=== PATIENT | female | born 1990 | race African-American/Black ===

== ENCOUNTER 2016-06-29 11:57 | Emergency (ER) | payer OTHER ==
[2016-06-29 12:01] VITALS: BP 118/75; PULSE 60; TEMP 97.8; BMI 29.3
[2016-06-29] MEDS ORDERED: OXYCODONE/APAP 5/325MG COMBO TABLET PO ONE (12:27)
[2016-06-29] MEDS ORDERED: OXYCODONE/APAP 5/325MG COMBO TABLET ONE (12:30)
--- NOTE | 2016-06-29 12:32 | PDOC ---
History of Present Illness - General Chief Complaint: Pain Stated Complaint: LEFT KNEE AND PAIN Time Seen by Provider: 06/29/16 12:08 History Source: Patient - History of Present Illness Occurred: reports: other Lower Extremity Pain Location: left: knee Past History - Past Medical History Allergies/Adverse Reactions: Allergies Allergy/AdvReac Type Severity Reaction Status Date / Time No Known Allergies Allergy Verified 06/29/16 11:58 Home Medications: Ambulatory Orders Ibuprofen [Motrin -] 800 mg PO Q6H #30 tablet 06/29/16 Other medical history: none - Reproductive History (#): 3 Para: 1 - Immunization History Immunization Up to Date: Yes - Psycho/Social/Smoking Cessation Hx Anxiety: No Suicidal Ideation: No Smoking Status: No Smoking History: Never smoked Have you smoked in the past 12 months: No Number of Cigarettes Smoked Daily: 0 Information on smoking cessation initiated: No Hx Alcohol Use: No Drug/Substance Use Hx: No Substance Use Type: None Hx Substance Use Treatment: No Review of Systems - Review of Systems Constitutional: No: Chills, Fever Musculoskeletal: Yes: Joint Pain. No: Joint Swelling *Physical Exam - Vital Signs Last Vital Signs Temp Pulse Resp BP Pulse Ox 97.8 F 60 18 118/75 100 06/29/16 11:59 06/29/16 11:59 06/29/16 11:59 06/29/16 11:59 06/29/16 11:59 - Physical Exam Comments: 06/29/16 12:31 pt sitting on stretcher and texting on her phone General Appearance: Yes: Appropriately Dressed. No: Apparent Distress HEENT: positive: Normal Voice Respiratory/Chest: negative: Respiratory Distress Extremity: positive: Normal Inspection. negative: Tender, Swelling Integumentary: positive: Dry, Warm Neurologic: positive: Fully Oriented, Alert, Normal Mood/Affect Medical Decision Making - Medical Decision Making 06/29/16 12:29 26-year-old female, endorses history of chronic left knee pain after injury 2 years ago. States she had an MRI which showed "bruised bone and inflammation". Has been f/u with an orthopedic, here complaining of worsening of her knee pain 4 days. Is able to bear weight. Taking [id number] medications with no improvement as per patient. Patient well-appearing and in no apparent distress with no swelling to left knee and no significant tenderness to palpation. Will manage pain in ED and dc w/ rx and have pt follow-up with her orthopedic for possible referral to pain management at this point *DC/Admit/Observation/Transfer Diagnosis at time of Disposition: Chronic pain of left knee - Discharge Dispostion Disposition: HOME - Prescriptions Prescriptions: Ibuprofen [Motrin -] 800 mg PO Q6H #30 tablet - Patient Instructions Additional Instructions: Please follow up with your orthopedic
== END 2016-06-29 12:35 | disposition home or self-care (01) ==
LOC: JERFT 11:57
DX: M25.562 Pain in left knee (principal); G89.29 Other chronic pain
CPT/HCPCS: 99281-25

== ENCOUNTER 2016-12-03 22:56 | Emergency (ER) | payer OTHER ==
--- NOTE | 2016-12-03 23:04 | PDOC ---
History of Present Illness - General Chief Complaint: Respiratory Stated Complaint: CANT BREATHE Time Seen by Provider: 12/03/16 22:58 History Source: Patient Exam Limitations: No Limitations - History of Present Illness Initial Comments: 12/04/16 00:11 This is a 26-year-old female who comes in complaining of difficulty breathing. Patient said that it hurts when she takes a deep breath. Patient's complaining of pleuritic type chest pain. Patient denies any fever, chills, cough. Patient denies any history of similar pains in the past. Patient denies any history of DVT risk factors. Patient is had no recent travel is not on control pills and has no family history of DVTs. Patient denies any nausea, diaphoresis or palpitations. Patient says she is otherwise healthy. Patient is complaining of some pain in her left inner thigh and behind her left knee with some associated swelling and discomfort. PAST MEDICAL HISTORY: no significant history PAST SURGICAL HISTORY: no significant history FAMILY HISTORY: no pertinant history SOCIAL HISTORY: Pt lives with family and is employed. MEDICATIONS: reviewed ALLERGIES: As per nursing notes Review of Systems General: No fevers or chills, no weakness, no weight loss HEENT: No change in vision. No sore throat,. No ear pain CardioVascular: No chest pain or shortness of breath Respiratory:No cough, or wheezing. Gastrointestinal: no nausea, vomitting, diarrhea or constipation, No rectal bleeding Genitourinary: No dysuria, hematuria, or frequency Musculoskeletal: No joint or muscle pain or swelling Neurologic: No headache, vertigo, dizziness or loss of consciousness Psychiatric: nor depression Skin: No rashes or easy bruising Endocrine: no increased thirst or abnormal weight change Allergic: no skin or latex allergy All other systems reviewed and normal Exam: General: Well-nourished well-developed individual, no acute distress HEENT: Throat: Normal, tonsils normal, no erythema or exudate Neck: Supple, no meningeal signs, no lymphadenopathy Eyes::Pupils equal reactive and round, extraocular motion intact Chest: Nontender to palpation Cardiac: S1-S2 normal, regular rate and rhythm, no murmurs rubs or gallops Respiratory: Lungs clear to auscultation bilateral Abdomen: Soft, nondistended, normal bowel sounds, nontender to palpation diffusely Extremities: Warm, dry, no cyanosis, clubbing, or edema, left lower extremity there is some tenderness on palpation posterior fossa as well as in her by proximally to mid thigh. There is no tender palpable cord. Neurovascular distal is intact Skin: No rashes Neuro: Alert and oriented x3, nonfocal exam, grossly intact, normal gait Psych: Normal mood and affect EKG shows normal sinus rhythm at rate of [address]-T wave changes. Otherwise normal EKG Ultrasound Doppler is negative for any DVT. Assessment and plan: This is a 26-year-old female who comes in complaining of pleuritic type chest pain and shortness of breath. Patient had a workup including cardiogram that was normal, Doppler to rule out DVT that was normal d- dimer that was normal and blood work that was normal. Patient was diagnosed with pleuritis given an anti-inflammatory which helped with her pain and discharged on an anti-inflammatory. Patient has a primary care doctor she can follow-up with. Past History - Past Medical History Allergies/Adverse Reactions: Allergies Allergy/AdvReac Type Severity Reaction Status Date / Time No Known Allergies Allergy Verified 06/29/16 11:58 Home Medications: Ambulatory Orders NK [No Known Home Medication] 12/03/16 - Reproductive History (#): 3 Para: 1 - Immunization History Immunization Up to Date: Yes - Psycho/Social/Smoking Cessation Hx Anxiety: No Suicidal Ideation: No Smoking Status: No Smoking History: Never smoked Have you smoked in the past 12 months: No Number of Cigarettes Smoked Daily: 0 Hx Alcohol Use: No Drug/Substance Use Hx: No Substance Use Type: None Hx Substance Use Treatment: No ED Treatment Course - LABORATORY CBC & Chemistry Diagram: 12/03/16 23:10 12/03/16 23:10 *DC/Admit/Observation/Transfer Diagnosis at time of Disposition: Pleuritic chest pain - Discharge Dispostion Disposition: HOME Condition at time of disposition: Stable Admit: No - Patient Instructions Additional Instructions: Your workup was negative for any serious causes for your pain. Her pain is most likely secondary to a viral etiology. For the pain take ibuprofen 3 tablets 3 times a day with food don't take on an empty stomach. Return to the emergency department immediately with ANY new, persistent or worsening symptoms. Continue any medications as previously prescribed by your physician. You should follow up with your primary doctor as soon as possible regarding today's emergency department visit. . Please make sure your doctor reviews the results of your emergency evaluation. Thank you for coming to the Emergency Department today for your care. It was a pleasure to see you today. Please note that your evaluation is INCOMPLETE until you follow-up with your doctor.
[2016-12-03 23:11] VITALS: BP 130/81; PULSE 73; TEMP 98; BMI 29.3
[2016-12-03 23:29] LABS: BASOPHIL 0.8 % (0-2.0); EOSINOPHIL 0.8 % (0-4.5); MCHC 33.7 g/dl (32.0-36.0); MEAN CELL VOLUME 65.4 fl (80-96); MEAN PLT VOLUME 8.4 fl (7.5-11.1); NEUTROPHILS 51.4 % (42.8-82.8); PLATELET COUNT 271 K/MM3 (134-434); RDW 14.6 % (11.6-15.6); WHITE BLOOD COUNT 10.4 K/mm3 (4.0-10.8)
[2016-12-03 23:37] LABS: ALK PHOS 65 U/L (32-92); ANION GAP 5 (8-16); CALCIUM 9.2 mg/dl (8.4-10.2); CO2 24 mmol/L (22-28); CREATININE 0.8 mg/dl (0.6-1.3); GLUCOSE,RANDOM 100 mg/dl (74-106); SGOT/AST 18 U/L (10-42); SGPT/ALT 14 U/L (10-40); TOT PROT 7.2 g/dl (6.4-8.3)
[2016-12-03 23:47] LABS: BILIRUBIN,TOTAL 0.5 mg/dl (0.2-1.0)
[2016-12-03 23:48] LABS: MICROCYTOSIS 2+
[2016-12-03 23:49] LABS: HYPOCHROMIA 2+
[2016-12-03 23:50] LABS: PLATELET ESTIMATE ADEQUATE
[2016-12-04] MEDS ORDERED: KETOROLAC TROMETHAMINE 30 MG/1 ML VIAL IVPUSH ONE (00:11)
--- NOTE | 2016-12-04 11:52 | EKG ---
Test Reason : Blood Pressure : / mmHG Vent. Rate : 059 BPM Atrial Rate : 059 BPM P-R Int : 154 ms QRS Dur : 076 ms QT Int : 410 ms P-R-T Axes : 036 028 009 degrees QTc Int : 405 ms SINUS BRADYCARDIA OTHERWISE NORMAL ECG WHEN COMPARED WITH ECG OF 02-SEP-2008 20:29, NO SIGNIFICANT CHANGE WAS FOUND CLINICAL CORRELATION IS RECOMMENDED Confirmed by MARLI YEUNG MD ([id number]) on 12/04/2016 11:51:22 AM Referred By: Confirmed By:MARLI YEUNG MD
== END 2016-12-04 01:06 | disposition home or self-care (01) ==
LOC: FER 22:56
DX: R07.81 Pleurodynia (principal)
CPT/HCPCS: 36415; 80053; 84703; 85025; 85379; 93005; 93971-TC; 99281-25

== ENCOUNTER 2017-01-23 22:15 | Emergency (ER) | payer OTHER ==
[2017-01-23 22:23] VITALS: BP 119/83; PULSE 66; TEMP 98.5; BMI 29.5
[2017-01-23] MEDS ORDERED: IBUPROFEN 600 MG TABLET (FP) PO ONE (22:24)
--- NOTE | 2017-01-23 22:28 | PDOC ---
History of Present Illness - General Chief Complaint: Back Pain Stated Complaint: BACK/SHOULDER PAIN Time Seen by Provider: 01/23/17 22:17 - History of Present Illness Initial Comments: 01/23/17 22:23 27 F with no PMH presents to ER with back and left chest wall pain after carrying her child. Pt states that her child had a temper tantrum, and when she tried to lift him up, she felt a pain suddenly in her left upper back. She states that it radiates across her side towards her chest, but she denies chest pain or SOB. Denies falling or hitting her head at any time. She states that the pain in her back and side is worse with palpation and certain movements. Denies any weakness/numbness/tingling. Past History - Past Medical History Allergies/Adverse Reactions: Allergies Allergy/AdvReac Type Severity Reaction Status Date / Time No Known Allergies Allergy Verified 06/29/16 11:58 Home Medications: Ambulatory Orders NK [No Known Home Medication] 12/03/16 - Reproductive History (#): 3 Para: 1 - Immunization History Immunization Up to Date: Yes - Suicide/Smoking/Psychosocial Hx Smoking Status: No Smoking History: Never smoked Have you smoked in the past 12 months: No Number of Cigarettes Smoked Daily: 0 Hx Alcohol Use: No Drug/Substance Use Hx: No Substance Use Type: None Hx Substance Use Treatment: No Review of Systems - Review of Systems Comments:: 01/23/17 22:25 "GENERAL/CONSTITUTIONAL: No fever or chills. No weakness. HEAD, EYES, EARS, NOSE AND THROAT: No change in vision. No ear pain or discharge. No sore throat. CARDIOVASCULAR: No chest pain or shortness of breath. RESPIRATORY: No cough, wheezing, or hemoptysis. GASTROINTESTINAL: No nausea, vomiting, diarrhea or constipation. GENITOURINARY: No dysuria, frequency, or change in urination. MUSCULOSKELETAL: + back pain and L side pain, no neck pain SKIN: No rash NEUROLOGIC: No headache, vertigo, loss of consciousness, or change in strength/ sensation. ENDOCRINE: No increased thirst. No abnormal weight change. HEMATOLOGIC/LYMPHATIC: No anemia, easy bleeding, or history of blood clots. ALLERGIC/IMMUNOLOGIC: No hives or skin allergy. " *Physical Exam - Physical Exam Comments: 01/23/17 22:26 "GENERAL: Awake, alert, and fully oriented, in no acute distress HEAD: No signs of trauma EYES: PERRLA, EOMI, sclera anicteric, conjunctiva clear ENT: Auricles normal inspection, hearing grossly normal, nares patent, oropharynx clear without exudates. Moist mucosa NECK: Nontender, no stepoffs, Normal ROM, supple, no lymphadenopathy, JVD, or masses LUNGS: Breath sounds equal, clear to auscultation bilaterally. No wheezes, and no crackles HEART: Regular rate and rhythm, normal S1 and S2, no murmurs, rubs or gallops CHEST: Chest wall with no TTP, no crepitus ABDOMEN: Soft, nontender, normoactive bowel sounds. No guarding, no rebound. No masses BACK: no midline tenderness, L latissimus dorsi muscle with mild tenderness to palpation EXTREMITIES: No deformity of BUE, full range of motion of shoulders, elbows, and hands. No bony tenderness. Normal range of motion, no edema. No clubbing or cyanosis. No cords, erythema, or tenderness NEUROLOGICAL: Cranial nerves II through XII intact. 5/5 strength and sensation in all extremities, Normal speech, normal gait SKIN: Warm, Dry, normal turgor, no rashes or lesions noted. " ED Treatment Course - RADIOLOGY Radiology Studies Ordered: Category Date Time Status CHEST PA & LAT [RAD] Stat Radiology 01/23/17 22:22 Ordered Medical Decision Making - Medical Decision Making 01/23/17 22:28 27 F with L side and back pain after struggling to carry her child. Likely muscular strain. No deformities on exam, NO evidence of spinal injury. - CXR - Motrin - F/u PMD 01/23/17 23:09 XR unremarkable. Pain significantly improved after motrin. Likely 2/2 muscle strain. Pt to be DC'ed home with PMD f/u. *DC/Admit/Observation/Transfer Diagnosis at time of Disposition: Sprain of upper back - Discharge Dispostion Disposition: HOME Condition at time of disposition: Good - Patient Instructions Printed Discharge Instructions: DI for Back Strain or Sprain Additional Instructions: Take ibuprofen every 6 hours as needed for pain. Follow up with your primary care doctor within 1-2 weeks for a re-evaluation. If you experience worsening back pain, chest pain, shortness of breath, or any other concerning symptoms, return to the ER immediately. - Attestations Physician Attestion: 01/23/17 23:11 I, Dr. Vu Cohen MD, attest that this document has been prepared under my direction and personally reviewed by me in its entirety. I further attest, that it accurately reflects all work, treatment, procedures and medical decision -making performed by me.
== END 2017-01-23 23:14 | disposition home or self-care (01) ==
LOC: FER 22:15
DX: S23.3XXA Sprain of ligaments of thoracic spine, initial encounter (principal); X58.XXXA Exposure to other specified factors, initial encounter; Y93.9 Activity, unspecified; Y92.9 Unspecified place or not applicable
CPT/HCPCS: 71020-TC; 84703; 99283-25

== ENCOUNTER 2017-04-18 10:38 | Emergency (ER) | payer OTHER ==
--- NOTE | 2017-04-18 10:46 | PDOC ---
History of Present Illness - General Chief Complaint: Injury Stated Complaint: LEFT THUMB/WRIST PAIN Time Seen by Provider: 04/18/17 10:46 History Source: Patient Exam Limitations: No Limitations - History of Present Illness Initial Comments: 04/18/17 11:16 Pt presents to the ED after hitting her left thumb against the wall while running. The patient hit the wall head on with her extended left thumb. Now complains of pain and swelling located primarily around the mcp joint. Denies other injuries. Patient did not try anything for the pain except for ice, which she states she could not continue because it was "too cold". Pain is worse with flexion and extension of her thumb. Denies prior injuries to that hand. Past History - Past Medical History Allergies/Adverse Reactions: Allergies Allergy/AdvReac Type Severity Reaction Status Date / Time No Known Allergies Allergy Verified 04/18/17 10:40 Home Medications: Ambulatory Orders NK [No Known Home Medication] 04/18/17 COPD: No - Reproductive History (#): 3 Para: 1 - Immunization History Immunization Up to Date: Yes - Suicide/Smoking/Psychosocial Hx Smoking Status: No Smoking History: Never smoked Have you smoked in the past 12 months: No Number of Cigarettes Smoked Daily: 0 Hx Alcohol Use: No Drug/Substance Use Hx: No Substance Use Type: None Hx Substance Use Treatment: No Review of Systems - Review of Systems Musculoskeletal: Yes: Joint Swelling All Other Systems: Reviewed and Negative *Physical Exam - Physical Exam General Appearance: Yes: Nourished, Appropriately Dressed Neck: positive: Supple Musculoskeletal: positive: Normal Inspection Extremity: positive: Normal Capillary Refill, Normal Inspection, Tender. negative: Normal Range of Motion (limited active flexion and extension of the left thumb. Full passive ROM. Mild swelling without deformity or ecchymosis, worse at the MCP joint. Full ROM without tenderness or deformity of the L wrist. ), Pelvis Stable, Coldness, Cyanosis, Delayed Capillary Refill, Pedal Edema, Swelling, Calf Tenderness, Erythema, Inflammation, Other Neurologic: positive: Fully Oriented, Alert, Normal Mood/Affect, Normal Response , Motor Strength 5/5 Medical Decision Making - Medical Decision Making 04/18/17 11:21 Pt presents to the ED complaining of pain and tenderness to the L thumb after hitting her thumb against a wall. denies other injuries. More likely mild sprain than ligamentous injury, but will check xrays to rule out fracture. Will give pain control. 04/18/17 12:14 xray is negative for fracture. Will discharge patient home. *DC/Admit/Observation/Transfer Diagnosis at time of Disposition: Sprain of hand, thumb, left Qualifiers: Encounter type: initial encounter Sprain of finger site: metacarpophalangeal joint Qualified Code(s): S63.642A - Sprain of metacarpophalangeal joint of left thumb, initial encounter - Discharge Dispostion Disposition: HOME Condition at time of disposition: Good Admit: No - Referrals Referrals: Rosa Sharma MD [Primary Care Provider] - - Patient Instructions Printed Discharge Instructions: DI for Hand Injury Additional Instructions: return to the ED for severe pain or swelling in your hand or thumb. - Post Discharge Activity
[2017-04-18 10:47] VITALS: BP 122/80; PULSE 62; TEMP 98.5; BMI 30.3
[2017-04-18] MEDS ORDERED: IBUPROFEN 400 MG TABLET (FP) PO ONE ×2 (10:56→10:58)
== END 2017-04-18 12:21 | disposition home or self-care (01) ==
LOC: FER 10:38
DX: S63.642A Sprain of metacarpophalangeal joint of left thumb, initial encounter (principal); X58.XXXA Exposure to other specified factors, initial encounter; Y93.89 Activity, other specified; Y92.9 Unspecified place or not applicable
CPT/HCPCS: 73130-TC-LT; 99281-25

== ENCOUNTER 2017-12-22 17:32 | Emergency (ER) | payer SELFPAY ==
[2017-12-22 17:47] VITALS: BP 93/76; PULSE 76; TEMP 98.2; BMI 31.0
--- NOTE | 2017-12-22 18:27 | PDOC ---
History of Present Illness - General Chief Complaint: Pain Stated Complaint: INFECTED RIGHT MID FINGER Time Seen by Provider: 12/22/17 18:27 - History of Present Illness Initial Comments: 12/22/17 19:15 The patient is a 27 year old female with no significant PMH who presents for right 3rd digit infection. The patient reports pain to the finger tip beginning 1 week ago with worsening swelling to the finger tip around the nail over the past 1-2 days prompting her presentation to the ED for further evaluation. She otherwise denies fevers, chills, SOB, chest pain, nausea, vomiting, abdominal pain, numbness, tingling, weakness, or changes with urination or bowel movements. Past History - Past Medical History Allergies/Adverse Reactions: Allergies Allergy/AdvReac Type Severity Reaction Status Date / Time No Known Allergies Allergy Verified 12/22/17 17:33 Home Medications: Ambulatory Orders Clindamycin [Cleocin -] 300 mg PO Q6HPO #28 capsule 12/22/17 COPD: No - Reproductive History (#): 3 Para: 1 - Immunization History Immunization Up to Date: Yes - Suicide/Smoking/Psychosocial Hx Smoking Status: No Smoking History: Never smoked Have you smoked in the past 12 months: No Number of Cigarettes Smoked Daily: 0 Information on smoking cessation initiated: No Hx Alcohol Use: Yes (SOCIAL) Drug/Substance Use Hx: No Substance Use Type: Alcohol Hx Substance Use Treatment: No Review of Systems - Review of Systems Comments:: 12/22/17 19:17 Constitutional: No fevers, chills, fatigue, malaise HEENT: No Rhinorrhea, nasal congestion, visual changes Cardiovascular: No chest pain, syncope, palpitations, lightheadedness Respiratory: No Cough, SOB, Hemoptysis, Gastrointestinal: No Abdominal pain, Nausea, Vomiting, Constipation, Diarrhea, Melena Genitourinary: No Dysuria, Frequency, Urgency, Hesitancy, Hematuria, Flank pain Musculoskeletal: No Myalgia, arthralgia Skin: right 3rd digit pain and swelling. No rashes, itching, bruising, pallor Neurologic: No Headache, Dizziness, Numbness, Weakness, or Tingling Psychiatric: No Hallucinations. No SI or HI *Physical Exam - Vital Signs Last Vital Signs Temp Pulse Resp BP Pulse Ox 98.2 F 76 16 93/76 98 12/22/17 17:32 12/22/17 17:32 12/22/17 17:32 12/22/17 17:32 12/22/17 17:32 - Physical Exam Comments: 12/22/17 19:18 General Appearance: Nourished. No Apparent Distress HEENT: No Pharyngeal Erythema, Tonsillar Exudate, Tonsillar Erythema Neck: No Cervical Lymphadenopathy Respiratory/Chest: Lungs Clear, Normal Breath Sounds. No Crackles, Rales, Rhonchi, Wheezing Cardiovascular: Regular Rhythm, Regular Rate. No Murmur, Gallops, Rubs Gastrointestinal/Abdominal: Normal Bowel Sounds, Soft. No Guarding, Rebound, Tenderness Musculoskeletal: No CVA Tenderness Extremity: Paronychia noted to the right 3rd digit with tenderness to palpation. Normal Capillary Refill Integumentary: Normal Color, Dry, Warm Neurologic: Fully Oriented, Alert, Normal Mood/Affect, Normal Response, Procedures - Incision and Drainage I&D Site: Right: Paronychia (3rd digit) Anesthesia: 1% Lidocaine Blade Size: 11 Attempts: 2 Plain Packing: No Complications: none Dressing: Yes Medical Decision Making - Medical Decision Making 12/22/17 19:19 The patient is a 27 year old female with no significant PMH who presents for right 3rd digit infection. Paronychia was I&D here in the ED. We will treat the patient with clindamycin. We discussed proper wound care instructions as well as the need for salt water soaks and the patient voiced understanding. We are comfortable discharging the patient home on clindamycin with primary care provider follow up. We discussed the plan and return precautions with the patient who voiced understanding and is agreeable with the plan. *DC/Admit/Observation/Transfer Diagnosis at time of Disposition: Paronychia - Discharge Dispostion Disposition: HOME Condition at time of disposition: Stable Decision to Admit order: No - Prescriptions Prescriptions: Clindamycin [Cleocin -] 300 mg PO Q6HPO #28 capsule - Referrals - Patient Instructions Printed Discharge Instructions: DI for Paronychia Additional Instructions: Please return to the ER if you experience concerning or worsening symptoms including worsening redness, swelling, or pain. Please soak your finger in warm salt water at home twice a day. We have also sent antibiotics to your pharmacy that you should take as directed for 7 days. Please call to schedule a follow up appointment with your primary care provider within 2-3 days to discuss your ER visit and further management of your symptoms. - Post Discharge Activity
[2017-12-22] MEDS ORDERED: CLINDAMYCIN HCL 300 MG CAPSULE PO ONE (19:12)
[2017-12-22] MEDS ORDERED: CLINDAMYCIN HCL 150 MG CAPSULE (FP) ONE (19:26)
== END 2017-12-22 19:30 | disposition home or self-care (01) ==
LOC: FER 17:32
PROC: 0H9QXZZ Drainage of Finger Nail, External Approach (ICD-10-PCS; principal; 2017-12-22)
DX: L03.011 Cellulitis of right finger (principal)
CPT/HCPCS: 99281-25

== ENCOUNTER 2018-03-01 11:49 | Emergency (ER) | payer OTHER ==
[2018-03-01 11:55] VITALS: BP 108/72; PULSE 77; TEMP 99; BMI 31.1
[2018-03-01 12:19] LABS: URINE APPEARANCE CLEAR; URINE BILIRUBIN NEGATIVE (<2.0 mg/dL); URINE COLOR LTYELLOW; URINE GLUCOSE (UA) NEGATIVE (NEGATIVE); URINE KETONE NEGATIVE (NEGATIVE); URINE LEUK ESTERASE NEGATIVE (NEGATIVE); URINE NITRITE NEGATIVE (NEGATIVE); URINE PROTEIN NEGATIVE (NEGATIVE); URINE UROBILINOGEN NEGATIVE mg/dL (0.2-1.0)
[2018-03-01 12:23] LABS: HCG,QUALITATIVE URINE Negative
--- NOTE | 2018-03-01 12:24 | PDOC ---
History of Present Illness - General Chief Complaint: Vaginal Sxs Stated Complaint: abdominal pain Time Seen by Provider: 03/01/18 12:16 History Source: Patient Exam Limitations: No Limitations - History of Present Illness Travel History: No Initial Comments: 03/01/18 12:36 Here with complaints of foul smelling discharge 2-3 days. Has had bacterial vaginosis in the past and thinks may have a repeat infection. Is sexually active and partner is symptomatic. Denies any sexually transmitted diseases in the past. Timing/Duration: reports: constant, getting worse Past History - Travel Traveled outside of the country in the last 30 days: No Close contact w/someone who was outside of country & ill: No - Past Medical History Allergies/Adverse Reactions: Allergies Allergy/AdvReac Type Severity Reaction Status Date / Time No Known Allergies Allergy Verified 03/01/18 11:52 Home Medications: Ambulatory Orders metroNIDAZOLE 0.75% VAG. GEL [Metrogel 0.75% *Vaginal Gel* -] 1 applic VG HS #1 tube 03/01/18 COPD: No - Reproductive History (#): 3 Para: 1 - Immunization History Immunization Up to Date: Yes - Suicide/Smoking/Psychosocial Hx Smoking Status: No Smoking History: Never smoked Have you smoked in the past 12 months: No Number of Cigarettes Smoked Daily: 0 Hx Alcohol Use: Yes (SOCIAL) Drug/Substance Use Hx: No Substance Use Type: Alcohol Hx Substance Use Treatment: No Review of Systems - Review of Systems Able to Perform ROS?: Yes Is the patient limited Norwegian proficient: Yes Constitutional: Yes: See HPI. No: Symptoms Reported, Malaise HEENTM: Yes: See HPI. No: Symptoms Reported ABD/GI: Yes: Symptoms Reported, See HPI. No: Constipated, Nausea, Vomiting : Yes: Symptoms Reported, See HPI, Discharge (smelly fishy vaginal discharge ) Musculoskeletal: No: Symptoms Reported Integumentary: No: Symptoms Reported All Other Systems: Reviewed and Negative *Physical Exam - Vital Signs Last Vital Signs Temp Pulse Resp BP Pulse Ox 99 F 77 16 108/72 99 03/01/18 11:52 03/01/18 11:52 03/01/18 11:52 03/01/18 11:52 03/01/18 11:52 - Physical Exam General Appearance: Yes: Nourished, Appropriately Dressed, Mild Distress. No: Apparent Distress HEENT: positive: ZELDA, Normal ENT Inspection, TMs Normal, Pharynx Normal Neck: positive: Supple. negative: Lymphadenopathy (R), Lymphadenopathy (L) Respiratory/Chest: positive: Lungs Clear, Normal Breath Sounds Female Pelvic Exam: positive: normal external exam (no lesions or ulcerations noted, has some fishy odor with scant amount of thin white discharge, vault is negative,'s office is closed, has no CMT or masses/tenderness to adnexa.), discharge. negative: lesions, adnexal tenderness Gastrointestinal/Abdominal: positive: Soft. 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 Has cultures reports not revealed for 2-3 days we'll treat for gonorrhea/chlamydia with azithromycin and Rocephin. No reaction after 30 minutes observation. Also sent prescription for MetroGel to pharmacy. Patient will follow-up with [facility] next week for repeat testing *DC/Admit/Observation/Transfer Diagnosis at time of Disposition: BV (bacterial vaginosis), Possible exposure to STD - Discharge Dispostion Disposition: HOME Condition at time of disposition: Stable Decision to Admit order: No - Referrals Referrals: Rosa Sharma MD [Primary Care Provider] - - Patient Instructions Printed Discharge Instructions: DI for Bacterial Vaginosis Additional Instructions: You been treated today with azithromycin 1 g by mouth for treatment of presumed chlamydia You have been treated with Rocephin 250 mg injection for treatment of presumned gonorrhea The gonorrhea and chlamydia testing will not be completed for the next few days. MetroGel 1 application nightly for one week to treat bacterial vaginosis You may call [phone] and leave message for return phone call with lab results. Be sure to be clear with your name, birthdate, and phone number Always use condoms with the partners Followup with [facility] or PMD in one week for reevaluation and retesting. - Post Discharge Activity Forms/Work/School Notes: Back to Work
[2018-03-01 12:39] LABS: EPI CELLS RARE /HPF (FEW); URINE MUCUS RARE
[2018-03-01] MEDS ORDERED: AZITHROMYCIN 250 MG TABLET ONE (12:40)
[2018-03-01] MEDS ORDERED: AZITHROMYCIN 500 MG TABLET PO ONE (12:49)
[2018-03-02] MEDS ORDERED: AZITHROMYCIN 250 MG TABLET PO ONE (12:31)
== END 2018-03-01 12:53 | disposition home or self-care (01) ==
LOC: JERFT 11:49
PROC: 3E0233Z Introduction of Anti-inflammatory into Muscle, Percutaneous Approach (ICD-10-PCS; principal; 2018-03-01)
DX: N76.0 Acute vaginitis (principal); B96.89 Other specified bacterial agents as the cause of diseases classified elsewhere; Z20.2 Contact with and (suspected) exposure to infections with a predominantly sexual mode of transmission
CPT/HCPCS: 36415; 81003; 81015; 84703; 87070; 87086; 87205; 87491; 87591; 96372; 99281-25

== ENCOUNTER 2018-03-16 18:06 | Emergency (ER) | payer OTHER ==
[2018-03-16 18:34] VITALS: BP 120/72; PULSE 82; TEMP 98.2; BMI 30.7
--- NOTE | 2018-03-16 18:42 | PDOC ---
History of Present Illness - General Chief Complaint: Allergic Reaction Stated Complaint: ALLERGIC REACTION - History of Present Illness Initial Comments: The patient is a 28F w/ no reported PMH who presents for evaluation of rash/ hives/BUE swelling, lip swelling, and throat swelling s/p eating Bel[place]ian food last night at 0345. Patient reports no immediate reaction. Woke up around 1100 with above symptoms. She took 3 OTC benadryl capsules and went back to sleep. Re -awoke at 1600 with persistent lip swelling, hives, BUE swelling/itching, throat discomfort. Denies shortness of breath, odynophagia, chest pain, N/V/D. Denies recent fevers/chills, WILHELM, vision changes. Denies history of food allergies or medication allergies Denies any other new exposures that she can think of. Denies any others around her with similar symptoms 03/16/18 18:35 Past History - Past Medical History Allergies/Adverse Reactions: Allergies Allergy/AdvReac Type Severity Reaction Status Date / Time No Known Allergies Allergy Verified 03/16/18 18:19 Home Medications: Ambulatory Orders Diphenhydramine [Benadryl -] 100 mg PO ASDIR 03/16/18 Epinephrine [Epipen] 0.3 mg IJ ONCE #1 auto.injct 03/16/18 Famotidine [Pepcid -] 20 mg PO DAILY #7 tablet 03/16/18 Prednisone [Deltasone] 40 mg PO DAILY 4 Days #8 tablet 03/16/18 COPD: No - Reproductive History (#): 3 Para: 1 - Immunization History Immunization Up to Date: Yes - Suicide/Smoking/Psychosocial Hx Smoking Status: No Smoking History: Unknown if ever smoked Have you smoked in the past 12 months: No Number of Cigarettes Smoked Daily: 0 Hx Alcohol Use: Yes (SOCIAL) Drug/Substance Use Hx: No Substance Use Type: Alcohol Hx Substance Use Treatment: No Review of Systems - Review of Systems Able to Perform ROS?: Yes Comments:: GENERAL/CONSTITUTIONAL: No fever or chills. No weakness HEAD, EYES, EARS, NOSE AND THROAT: No change in vision. No ear pain or discharge CARDIOVASCULAR: No chest pain or shortness of breath RESPIRATORY: No cough, wheezing, or hemoptysis. GASTROINTESTINAL: No nausea, vomiting, diarrhea or constipation GENITOURINARY: No dysuria, frequency, or change in urination MUSCULOSKELETAL: No joint or muscle swelling or pain. No neck or back pain SKIN: No rash NEUROLOGIC: No headache, vertigo, loss of consciousness, or change in strength/ sensation ENDOCRINE: No increased thirst. No abnormal weight change HEMATOLOGIC/LYMPHATIC: No anemia, easy bleeding, or history of blood clots 03/16/18 18:39 Is the patient limited Swedish proficient: No *Physical Exam - Vital Signs Last Vital Signs Temp Pulse Resp BP Pulse Ox 98.2 F 82 18 120/72 100 03/16/18 18:20 03/16/18 18:20 03/16/18 18:20 03/16/18 18:20 03/16/18 18:20 - Physical Exam Comments: GENERAL: Awake, alert, and fully oriented, in no acute distress HEAD: No signs of trauma, normocephalic, atraumatic EYES: PERRLA, EOMI, sclera anicteric, conjunctiva clear ENT: +lower lip swelling; no oropharyngeal swelling; uvula midline w/o edema; Hearing grossly normal, nares patent. Moist mucosa LUNGS: No distress, speaks full sentences, clear to auscultation bilaterally HEART: Regular rate and rhythm, normal S1 and S2, no murmurs appreciated, peripheral pulses normal and equal bilaterally ABDOMEN: Soft, nontender, normoactive bowel sounds. No guarding, no rebound EXTREMITIES : Normal inspection, Normal range of motion, no edema. No clubbing or cyanosis NEUROLOGICAL: Cranial nerves II through XII grossly intact. Normal speech, normal gait, no focal sensorimotor deficits SKIN: warm, dry, diffuse mild erythema/weals, no open lesions/wounds 03/16/18 18:40 Medical Decision Making - Medical Decision Making The patient is a 28F w/ no reported PMH who presents for evaluation of possible allergic reaction ED Course Patient breathing comfortably on room air. No distress. Lungs CTAB. Oropharynx patent Solumedrol 125mg IV once; Pepcid 20mg IV once; Benadryl 50mg IV once 03/16/18 18:42 Rx for prednisone 40mg PO 4 days, pepcid 20mg PO 7 days, epi pen Referral for allergy testing 03/16/18 19:22 Symptoms improved. Denies shortness of breath. Feels throat tightness has resolved. Plan for D/C Rx sent Discharge instructions and return precautions given Dispo: Home 03/16/18 21:24 *DC/Admit/Observation/Transfer Diagnosis at time of Disposition: Allergic reaction Qualifiers: Encounter type: initial encounter Qualified Code(s): T78.40XA - Allergy, unspecified, initial encounter - Discharge Dispostion Disposition: HOME Condition at time of disposition: Improved Decision to Admit order: No - Prescriptions Prescriptions: Epinephrine [Epipen] 0.3 mg IJ ONCE #1 auto.injct Famotidine [Pepcid -] 20 mg PO DAILY #7 tablet Prednisone [Deltasone] 40 mg PO DAILY 4 Days #8 tablet - Referrals Referrals: Rosa Sharma MD [Primary Care Provider] - Jerry Connell MD [Staff Physician] - - Patient Instructions Printed Discharge Instructions: Anaphylaxis Additional Instructions: You were seen in the Emergency Room for allergic reaction. Prescriptions were sent to the pharmacy that you specified. Take as directed. Please follow up with your primary care provider and follow up with the Custodial Manager referral. Return to the Emergency Department if you develop shortness of breath, chest pain, throat tightness, difficulty swallowing, rash, worsening symptoms, or any new/concerning symptoms. - Post Discharge Activity
[2018-03-16] MEDS ORDERED: methylPREDNISolone NA SUCC 125 MG/2 ML VIAL IVPUSH ONE (18:48)
[2018-03-16] MEDS ORDERED: FAMOTIDINE 20 MG/50 ML IVPB 20 MG/50 ML MG IVPB ONE ×3 (18:48→20:08)
[2018-03-16] MEDS ORDERED: diphenhydrAMINE HCL 50 MG CAPSULE PO ONE (18:50)
[2018-03-16] MEDS ORDERED: methylPREDNISolone NA SUCC 125 MG/2 ML VIAL ONE (19:18)
--- NOTE | 2018-03-16 19:27 | PDOC ---
Attending Attestation - HPI HPI: 03/16/18 20:14 The patient is a 28-year-old female with no recorded past medical history presents to the emergency department with bilateral arm itching and lip swelling. The patient reports eating Northern Irish food last night, and woke up with the symptoms of swollen lips, itchy arms and legs and itching to the eyes. The patient reports taking 75 Benadryl in the morning, with relief noted to the eyes. The patient reports at the ER, the has itching to the arm and swelling to the lips, denies any current itching to the legs. Denies shortness of breath, difficulty swallowing or pain with swallowing. The patient reports she ordered from the same restaurant as usual and ordered the usual food as she gets. Denies any new detergent, food, soap. Denies fever, chills, chest pain, abdominal pain. Allergies: NKDA PCP: Rosa Foley MD - Physicial Exam PE: 03/16/18 20:24 GENERAL: Awake, alert, and fully oriented, in no acute distress HEAD: No signs of trauma EYES: PERRLA, EOMI, sclera anicteric, conjunctiva clear ENT: +lower lip swelling, uvula midline without edema, no posterior pharynx, no tongue swelling, no oropharyngeal swelling. Moist mucosa NECK: Normal ROM, supple, no lymphadenopathy, JVD, or masses LUNGS: Breath sounds equal, clear to auscultation bilaterally. No wheezes, and no crackles HEART: Regular rate and rhythm, normal S1 and S2, no murmurs, rubs or gallops ABDOMEN: Soft, nontender, normoactive bowel sounds. No guarding, no rebound. No masses EXTREMITIES: Normal range of motion, no edema. No clubbing or cyanosis. No cords, erythema, or tenderness NEUROLOGICAL: Cranial nerves II through XII grossly intact. Normal speech. SKIN: Urticaria bilaterally. Warm, Dry, normal turgor, no rashes or lesions noted. - Medical Decision Making 03/16/18 20:15 Documentation prepared by Rossi Henning, acting as medical sales associate for Alicia Alfonso DO. <Rossi Henning - Last Filed: 03/16/18 20:24> - Resident Resident Name: Wojciech Alvarado - ED Attending Attestation I have performed the following: I have examined & evaluated the patient, The case was reviewed & discussed with the resident, I agree w/resident's findings & plan, Exceptions are as noted - Medical Decision Making 03/16/18 19:25 I, Dr. Alicia Alfonso, DO, attest that this document has been prepared under my direction and personally reviewed by me in its entirety. I further attest, that it accurately reflects all work, treatment, procedures and medical decision -making performed by me. 03/16/18 19:25 a/p: 28yo female who ate georgian earlier today and developed hives, itching, and lower lip swelling -took benadryl at 11 am, mild resolution of hives initially, but then the urticaria returned -no prior allergic reactions -no known allergies -pt tolerating po, speaking in full sentences, no tongue or pharyneal swelling -mild lower lip swelling -will medicate with solumedrol, benadyrl, pepcid -will monitor and reassess 03/16/18 21:17 pt feeling better rash resolved lips improved stable for dc to home with allergy follow up with Dr. nazario will give prednisone and pepcid and benadryl and epi-pen for dc discussed all reasons to return to the ED and need for follow up <Alicia Alfonso - Last Filed: 03/16/18 21:19>
== END 2018-03-16 21:40 | disposition home or self-care (01) ==
LOC: JER 18:06
PROC: 3E033GC Introduction of Other Therapeutic Substance into Peripheral Vein, Percutaneous Approach (ICD-10-PCS; principal; 2018-03-16)
PROC: 3E033GC Introduction of Other Therapeutic Substance into Peripheral Vein, Percutaneous Approach (ICD-10-PCS; 2018-03-16)
PROC: 3E0333Z Introduction of Anti-inflammatory into Peripheral Vein, Percutaneous Approach (ICD-10-PCS; 2018-03-16)
DX: T78.3XXA Angioneurotic edema, initial encounter (principal); T78.49XA Other allergy, initial encounter; X58.XXXA Exposure to other specified factors, initial encounter
CPT/HCPCS: 96365; 96375; 99281-25

== ENCOUNTER 2018-05-12 16:39 | Emergency (ER) | payer SELFPAY ==
[2018-05-12 16:49] VITALS: BP 123/65; PULSE 79; TEMP 98.1; BMI 31.3
--- NOTE | 2018-05-12 17:43 | PDOC ---
History of Present Illness - History of Present Illness Initial Comments: This patient is a 28 year old female with PMHx of , who presents to the ED for white vaginal discharge and frequency since yesterday. Patient states that she is currently sexually active with both males and females, multiple partners, sometimes wears protection. She reports that since yesterday she has noticed white vaginal discharge with fishy odor and has noticed urinary frequency. Denies h/o STDs. Denies any fevers, chills, nausea, vomiting, diarrhea, chest pain, shortness of breath. Allergies: NKDA PCP: Rosa Foley MD 05/12/18 17:52 <Lenka Reis - Last Filed: 05/12/18 17:52> <Talha Vargas - Last Filed: 05/12/18 18:19> - General Chief Complaint: Vaginal Sxs Stated Complaint: VAGINAL DISCHARGE Time Seen by Provider: 05/12/18 17:02 Past History <Lenka Reis - Last Filed: 05/12/18 17:52> - Past Medical History COPD: No Other medical history: DENIES - Reproductive History Is Patient Now?: No (#): 3 Para: 1 - Immunization History Immunization Up to Date: Yes - Suicide/Smoking/Psychosocial Hx Smoking Status: No Smoking History: Never smoked Have you smoked in the past 12 months: No Number of Cigarettes Smoked Daily: 0 Information on smoking cessation initiated: No Hx Alcohol Use: (occasional) Drug/Substance Use Hx: No Substance Use Type: Alcohol Hx Substance Use Treatment: No <Talha Vargas - Last Filed: 05/12/18 18:19> - Past Medical History Allergies/Adverse Reactions: Allergies Allergy/AdvReac Type Severity Reaction Status Date / Time No Known Allergies Allergy Verified 05/12/18 16:42 Home Medications: Ambulatory Orders NK [No Known Home Medication] 05/12/18 Review of Systems - Review of Systems Comments:: Constitutional: no recent illness; no fever ENT: no sore throat Cardiovascular: no palpitations; no chest pain Pulmonary: no cough; no trouble breathing Gastrointestinal: No nausea; no vomiting; no diarrhea Genitourinary: +vaginal dc and odor, +frequency; no hematuria Skin: No rash Lymph system: No swollen glands Musculoskeletal: No joint swelling Neurological: No weakness; No numbness; No Headache; no vertigo; no lightheadedness Psychiatric:No anxiety; no depression <Lenka Reis - Last Filed: 05/12/18 17:52> *Physical Exam - Vital Signs Last Vital Signs Temp Pulse Resp BP Pulse Ox 98.1 F 79 18 123/65 99 05/12/18 16:40 05/12/18 16:40 05/12/18 16:40 05/12/18 16:40 05/12/18 16:40 - Physical Exam Comments: Vitals: Triage Vital signs reviewed General Appearance: no acute distress, well nourished well developed Extremities: Full range of motion to all extremities, no cyanosis, clubbing, or edema Skin: Warm and dry, no rashes or lesions, no rash, no petechiae Pelvic exam: Yellowish discharge no cervical or adnexal tenderness. Dr. Vargas was chaperoned by Lenka Reis, medical record technician. 05/12/18 17:53 <Lenka Reis - Last Filed: 05/12/18 17:52> - Vital Signs Last Vital Signs Temp Pulse Resp BP Pulse Ox 98.1 F 79 18 123/65 99 05/12/18 16:40 05/12/18 16:40 05/12/18 16:40 05/12/18 16:40 05/12/18 16:40 <Talha Vargas - Last Filed: 05/12/18 18:19> Moderate Sedation - Procedure Monitoring Vital Signs: Procedure Monitoring Vital Signs Temperature 98.1 F 05/12/18 16:40 Pulse Rate 79 05/12/18 16:40 Respiratory Rate 18 05/12/18 16:40 Blood Pressure 123/65 05/12/18 16:40 O2 Sat by Pulse Oximetry (%) 99 05/12/18 16:40 <Lenka Reis - Last Filed: 05/12/18 17:52> - Procedure Monitoring Vital Signs: Procedure Monitoring Vital Signs Temperature 98.1 F 05/12/18 16:40 Pulse Rate 79 05/12/18 16:40 Respiratory Rate 18 05/12/18 16:40 Blood Pressure 123/65 05/12/18 16:40 O2 Sat by Pulse Oximetry (%) 99 05/12/18 16:40 <Talha Vargas - Last Filed: 01/21/19 18:19> Medical Decision Making - Medical Decision Making 05/12/18 18:18 History examination consistent with STD. Cultures sent for GC chlamydia trick We'll treat empirically for GC chlamydia with ceftriaxone and azithromycin will follow up results and treat for trick if positive Patient via's follow-up with her DICE MANAGER Findings, need for follow-up and strict return instructions discussed with patient. <Talha Vargas - Last Filed: 05/12/18 18:19> *DC/Admit/Observation/Transfer - Attestations Scribe Attestion: 05/12/18 17:55 Documentation prepared by Lenka Reis, acting as medical case worker for Talha Vargas MD. <Lenka Reis - Last Filed: 05/12/18 17:52> - Discharge Dispostion Decision to Admit order: No <Talha Vargas - Last Filed: 05/12/18 18:19> Diagnosis at time of Disposition: Vaginal discharge - Discharge Dispostion Disposition: HOME Condition at time of disposition: Stable - Referrals Schedule a call back: Call back - Patient Instructions Printed Discharge Instructions: DI for Vaginal Discharge Additional Instructions: Follow-up with your DICE MANAGER or [facility] this week. Return to the emergency department for any fever severe abdominal pain severe worsening symptoms or for any concerns. - Post Discharge Activity Forms/Work/School Notes: Back to School
[2018-05-12 18:02] LABS: PH,URINE 6.5 (4.5-8); URINE APPEARANCE Slightly; URINE BILIRUBIN Negative (NEGATIVE); URINE COLOR Yellow; URINE GLUCOSE (UA) Negative (NEGATIVE); URINE KETONE Negative (NEGATIVE); URINE LEUK ESTERASE Negative (NEGATIVE); URINE NITRITE Negative (NEGATIVE); URINE PROTEIN Negative (NEGATIVE); URINE UROBILINOGEN 0.2 (0.2-1.0)
[2018-05-12 18:17] LABS: EPI CELLS 1+ /HPF; URINE BACTERIA RARE /hpf (NEGATIVE); URINE RBC 0-3 /hpf (0-3); URINE WBC 0-3 (0-5)
[2018-05-12] MEDS ORDERED: AZITHROMYCIN 500 MG TABLET PO ONE (18:17)
[2018-05-12] MEDS ORDERED: AZITHROMYCIN 250 MG TABLET ONE (18:21)
== END 2018-05-12 18:40 | disposition home or self-care (01) ==
LOC: FER 16:39
DX: N89.8 Other specified noninflammatory disorders of vagina (principal)
CPT/HCPCS: 36415; 81003; 81015; 84703; 87086; 87491; 87591; 87661; 99284-25

== ENCOUNTER 2019-02-25 21:36 | Emergency (ER) | payer OTHER ==
[2019-02-25 21:46] VITALS: BP 115/78; PULSE 73; TEMP 98.4; BMI 28.2
--- NOTE | 2019-02-25 22:07 | PDOC ---
Documentation entered by Rossi Henning SCRIBE, acting as scribe for Juan Martinez MD. Juan Martinez MD: This documentation has been prepared by the keoibe, Rossi Henning SCRIBE, under my direction and personally reviewed by me in its entirety. I confirm that the documentation accurately reflects all work , treatment, procedures, and medical decision making performed by me. History of Present Illness - General Chief Complaint: Wound Stated Complaint: L 4TH DIGIT INFECTION History Source: Patient Exam Limitations: No Limitations - History of Present Illness Initial Comments: 02/25/19 21:56 The patient is a 29 year old female who presents to the emergency department with finger swelling. The patient presents with left 4th digit swelling. The patient reports she recently got the acrylics nails removed, and reports she occasionally bites her nails. Denies fever or chills. PAST MEDICAL HISTORY: no significant history PAST SURGICAL HISTORY: no significant history FAMILY HISTORY: no pertinent history SOCIAL HISTORY: Pt lives with family and is employed. MEDICATIONS: reviewed ALLERGIES: As per nursing notes Review of system: General: No fevers or chills, no weakness, no weight loss HEENT: No change in vision. No sore throat,. No ear pain CardioVascular: No chest pain or shortness of breath Respiratory:No cough, or wheezing. Gastrointestinal: no nausea, vomiting, diarrhea or constipation, No rectal bleeding Genitourinary: No dysuria, hematuria, or frequency Musculoskeletal: +swelling to left 4th finger. No joint or muscle pain or swelling Neurologic: No headache, vertigo, dizziness or loss of consciousness Psychiatric: nor depression Skin: No rashes or easy bruising Endocrine: no increased thirst or abnormal weight change Allergic: no skin or latex allergy All other systems reviewed and normal Physical exam: GENERAL: The patient is awake, alert, and fully oriented, in no acute distress. HEAD: Normal with no signs of trauma. EYES: Pupils equal, round and reactive to light, extraocular movements intact, sclera anicteric, conjunctiva clear. EXTREMITIES: Normal range of motion, no edema. NEUROLOGICAL: Normal speech, normal gait. PSYCH: Normal mood, normal affect. SKIN: +paronychia to left 4th finger. Warm, Dry, normal turgor, no rashes or lesions noted. 02/25/19 22:05 Assessment and plan: This is a 29-year-old female who comes in with a paronychia on her left fourth finger. Procedure note incision and drainage of paronychia Finger was anesthetized via digital block Paronychia was incised with a #11 blade Small amount of pus was drained from the paronychia Iodoform packing was placed and a sterile dressing was placed patient tolerated well Past History - Past Medical History Allergies/Adverse Reactions: Allergies Allergy/AdvReac Type Severity Reaction Status Date / Time No Known Allergies Allergy Verified 05/12/18 16:42 Home Medications: Ambulatory Orders NK [No Known Home Medication] 05/12/18 COPD: No - Reproductive History (#): 3 Para: 1 - Immunization History Immunization Up to Date: Yes - Psycho Social/Smoking Cessation Hx Smoking Status: No Smoking History: Never smoked Have you smoked in the past 12 months: No Number of Cigarettes Smoked Daily: 0 Hx Alcohol Use: (occasional) Drug/Substance Use Hx: No Substance Use Type: Alcohol Hx Substance Use Treatment: No *Physical Exam - Vital Signs Last Vital Signs Temp Pulse Resp BP Pulse Ox 98.4 F 73 14 115/78 97 02/25/19 21:39 02/25/19 21:39 02/25/19 21:39 02/25/19 21:39 02/25/19 21:39 Discharge - Discharge Information Problems reviewed: Yes Clinical Impression/Diagnosis: Paronychia of left ring finger Condition: Good Disposition: HOME - Admission No - Follow up/Referral Referrals: Rosa Sharma MD [Primary Care Provider] - - Patient Discharge Instructions Additional Instructions: Remove the gauze from the wound tomorrow evening and start hot soaks as discussed by the doctor. Tylenol or Motrin for pain. Return to the emergency department immediately with ANY new, persistent or worsening symptoms. Continue any medications as previously prescribed by your physician. You should follow up with your primary doctor as soon as possible regarding today's emergency department visit. . Please make sure your doctor reviews the results of your emergency evaluation. Thank you for coming to the Emergency Department today for your care. It was a pleasure to see you today. Please note that your evaluation is INCOMPLETE until you follow-up with your doctor. - Post Discharge Activity
== END 2019-02-25 22:32 | disposition home or self-care (01) ==
LOC: FER 21:36
PROC: 0H9NXZZ Drainage of Left Foot Skin, External Approach (ICD-10-PCS; principal; 2019-02-25)
DX: L03.012 Cellulitis of left finger (principal)
CPT/HCPCS: 87070; 87186; 87205; 99283-25

== ENCOUNTER 2019-05-16 16:17 | Emergency (ER) | payer OTHER ==
[2019-05-16 16:52] VITALS: BMI 32.9
[2019-05-16] MEDS ORDERED: ACETAMINOPHEN 325 MG TABLET (FP) PO ONE (17:25)
[2019-05-16] MEDS ORDERED: NAPROXEN 375 MG TABLET PO ONE (17:25)
[2019-05-16] MEDS ORDERED: NAPROXEN 375 MG TABLET ONE (17:32)
[2019-05-16] MEDS ORDERED: ACETAMINOPHEN 325 MG TABLET (FP) ONE (17:32)
[2019-05-16 18:20] VITALS: BP 121/85; PULSE 68; TEMP 98.5
--- NOTE | 2019-05-16 18:28 | PDOC ---
Documentation entered by Catrachito Calixto SCRIBE, acting as scribe for Jose Cowan MD. Jose Cowan MD: This documentation has been prepared by the Durga anthony Xhesika, SCRIBE, under my direction and personally reviewed by me in its entirety. I confirm that the documentation accurately reflects all work, treatment, procedures, and medical decision making performed by me. History of Present Illness - General Chief Complaint: Cold Symptoms Stated Complaint: FLU Time Seen by Provider: 05/16/19 16:25 History Source: Patient Exam Limitations: No Limitations - History of Present Illness Initial Comments: 05/16/19 17:28 The patient is a 29 year old female with no significant PMH of who presents to the emergency department for 3 days of chills, headaches, cough associated with phlegm and body aches (back, shoulder and neck). Pt reports a fever of 100 yesterday, which has since been resolved. Pt states she is exposed to sick children at work. Pt states her LMP started Saturday (05/10/2019) and finished yesterday (05/15/2019). The patient denies chest pain, shortness of breath, and dizziness. Denies fever , nausea, vomiting, diarrhea and constipation. Denies dysuria, frequency, urgency and hematuria. Allergies: NKDA Social Hx: occasional alcohol use PCP: Rosa Foley Past History - Past Medical History Allergies/Adverse Reactions: Allergies Allergy/AdvReac Type Severity Reaction Status Date / Time No Known Allergies Allergy Verified 05/16/19 16:23 Home Medications: Ambulatory Orders Naproxen [Naprosyn -] 375 mg PO BID PRN #14 tablet 05/16/19 Oseltamivir Phosphate [Tamiflu] 75 mg PO BID #10 capsule 05/16/19 COPD: No - Reproductive History (#): 3 Para: 1 - Immunization History Immunization Up to Date: Yes - Psycho Social/Smoking Cessation Hx Smoking Status: No Smoking History: Never smoked Have you smoked in the past 12 months: No Number of Cigarettes Smoked Daily: 0 Hx Alcohol Use: Yes (OCCASIONAL) Drug/Substance Use Hx: No Substance Use Type: Alcohol Hx Substance Use Treatment: No Review of Systems - Review of Systems Able to Perform ROS?: Yes Comments:: 01/25/20 17:30 GENERAL/CONSTITUTIONAL: No fever. No weakness. +chills. +body aches HEAD, EYES, EARS, NOSE AND THROAT: No change in vision. No ear pain or discharge. No sore throat. CARDIOVASCULAR: No chest pain or shortness of breath. RESPIRATORY: + cough. No wheezing, or hemoptysis. GASTROINTESTINAL: No nausea, vomiting, diarrhea or constipation. GENITOURINARY: No dysuria, frequency, or change in urination. MUSCULOSKELETAL: No joint or muscle swelling or pain. No neck or back pain. SKIN: No rash NEUROLOGIC: + headache. No vertigo, loss of consciousness, or change in strength /sensation. ENDOCRINE: No increased thirst. No abnormal weight change. HEMATOLOGIC/LYMPHATIC: No anemia, easy bleeding, or history of blood clots. ALLERGIC/IMMUNOLOGIC: No hives or skin allergy. *Physical Exam - Vital Signs Last Vital Signs Temp Pulse Resp BP Pulse Ox 98.6 F 70 15 122/86 98 05/16/19 16:18 05/16/19 16:18 05/16/19 16:18 05/16/19 16:18 05/16/19 16:18 - Physical Exam 05/16/19 18:21 GENERAL: The patient is awake, alert, and fully oriented, in no acute distress. She has occasional coughing, nonproductive. HEAD: Normal with no signs of trauma. EYES: Pupils equal, round and reactive to light, extraocular movements intact, sclera anicteric, conjunctiva clear. No photophobia. ENT: Ears normal, nares patent, nasal membranes are red and swollen with clear discharge, oropharynx mild erythema without exudates. Moist mucous membranes. NECK: Normal range of motion, supple without lymphadenopathy, JVD, or masses. No meningismus, full range of motion is normal. LUNGS: Breath sounds equal, clear to auscultation bilaterally. No wheezes, and no crackles. HEART: Regular rate and rhythm, normal S1 and S2 without murmur, rub or gallop. ABDOMEN: Soft, nontender, normoactive bowel sounds. No guarding, no rebound. No masses. EXTREMITIES: Normal range of motion, no edema. No clubbing or cyanosis. No cords, erythema, or tenderness. NEUROLOGICAL: Cranial nerves II through XII grossly intact. Normal speech, normal gait. PSYCH: Normal mood, normal affect. SKIN: Warm, Dry, normal turgor, no rashes or lesions noted. ED Treatment Course - Medications Given in the ED: ED Medications Discontinued Medications Generic Name Dose Route Start Last Admin Trade Name Fiona PRN Reason Stop Dose Admin Acetaminophen 650 mg 05/16/19 17:25 05/16/19 17:35 Tylenol - PO 05/16/19 17:26 650 mg ONCE ONE Administration Naproxen 375 mg 05/16/19 17:25 05/16/19 17:34 Naprosyn - PO 05/16/19 17:26 375 mg ONCE ONE Administration Medical Decision Making - Medical Decision Making 05/16/19 18:22 Patient is a healthy 29-year-old female with 3 to 4 days of flulike symptoms. She has body aches with chills, no fever here. Her T-max at home was 100.0. She has nasal congestion, clear discharge, mild throat discomfort, and a cough without significant sputum. She also has a headache. There is no photophobia or neck stiffness. Other findings on examination, her temperature remains normal. There is no tachycardia. Her respirations and pulse ox are normal. Impression: 3 to 4 days of viral upper respiratory infection. No signs of pneumonia or meningitis. Plan: Push fluids, Naprosyn twice a day, rest. Given her BMI of 32.9, patient will be started on Tamiflu twice a day. She is advised to follow-up in 2 to 3 days with her primary care physician and to return to the emergency department for any severe or progressive symptoms. Discharge - Discharge Information Problems reviewed: Yes Clinical Impression/Diagnosis: Flu-like symptoms Condition: Stable Disposition: HOME - Admission No - Additional Discharge Information Prescriptions: Naproxen [Naprosyn -] 375 mg PO BID PRN #14 tablet PRN Reason: fever or pain Oseltamivir Phosphate [Tamiflu] 75 mg PO BID #10 capsule - Follow up/Referral Referrals: Rosa Sharma MD [Primary Care Provider] - 2 Days - Patient Discharge Instructions Patient Printed Discharge Instructions: DI for Viral Upper Respiratory Infection -- Adult Additional Instructions: Today you were evaluated for flu symptoms. Drink plenty of fluids. Get plenty of rest. Take Tamiflu twice a day for 5 days. Take Naprosyn twice a day as needed for pain or fever. Rest at home. Follow-up with your primary care physician early next week. Return to the emergency department for any severe or progressive symptoms. - Post Discharge Activity Work/Back to School Note: Back to Work
[2019-05-16] MEDS ORDERED: OSELTAMIVIR PHOSPHATE 75 MG CAPSULE PO ONE (18:36)
[2019-05-16] MEDS ORDERED: OSELTAMIVIR PHOSPHATE 75 MG CAPSULE ONE (18:38)
== END 2019-05-16 18:43 | disposition home or self-care (01) ==
LOC: FER 16:17
DX: J11.1 Influenza due to unidentified influenza virus with other respiratory manifestations (principal)
CPT/HCPCS: 99281-25

== ENCOUNTER 2019-12-05 12:42 | Inpatient (IN) | payer OTHER ==
--- NOTE | 2019-12-05 12:44 | PDOC ---
History of Present Illness - General Chief Complaint: Abscess Boil Stated Complaint: R BREAST ABSCESS Time Seen by Provider: 12/05/19 12:43 - History of Present Illness Initial Comments: 12/05/19 13:41 29yo female with no signif pmhx with pain and drainage from the right breast. Pt states the pain started 3 days ago. States she feels a "rock" and "heaviness" to the right lower lateral breast. Pt states the pain has been worsening since . States this am she woke up with green discharge from the nipple, crusting at the nipple. Pt has b/l nipple piercings that she states were 2 years ago. Pt denies f/c. No skin change of the breast. No cp/sob. No cough. No congestion. No abd pain. No n/v/d. Pt states last menstrual cycle was 11/08. Pt denies all systemic symptoms. Past History - Medical History Allergies/Adverse Reactions: Allergies Allergy/AdvReac Type Severity Reaction Status Date / Time No Known Allergies Allergy Verified 12/05/19 12:43 Home Medications: Ambulatory Orders NK [No Known Home Medication] 12/05/19 COPD: No - Reproductive History (#): 3 Para: 1 - Immunization History Immunization Up to Date: Yes - Psycho-Social/Smoking History Smoking Status: No Smoking History: Never smoked Have you smoked in the past 12 months: No Number of Cigarettes Smoked Daily: 0 Review of Systems - Review of Systems Able to Perform ROS?: Yes Is the patient limited Divehi proficient: No Constitutional: No: Chills, Fever, Malaise, Night Sweats, Weakness HEENTM: No: Throat Pain, Throat Swelling Respiratory: Yes: Other (R breast pain and drainage from the nipple). No: Cough, Shortness of Breath Cardiac (ROS): No: Chest Pain ABD/GI: No: Diarrhea, Nausea, Vomiting, Abdominal cramping : No: Burning, Dysuria Integumentary: No: Rash Neurological: No: Headache, Numbness, Paresthesia, Tingling, Tremors, Weakness, Ataxia Hematologic/Lymphatic: No: Lymph Node Abnormalities, Swollen Glands All Other Systems: Reviewed and Negative *Physical Exam - Vital Signs 12/05/19 14:50 Selected Entries 12/05/19 12:43 Temperature 98.1 F Pulse Rate 79 Respiratory 17 Rate Blood Pressure 114/74 Blood Pressure 87 Mean O2 Sat by Pulse 100 Oximetry (%) Weight 92.079 kg - Physical Exam General Appearance: Yes: Nourished, Appropriately Dressed, Apparent Distress (appears uncomfortable) HEENT: positive: EOMI, Normal Voice Neck: positive: Supple Respiratory/Chest: positive: Lungs Clear, Normal Breath Sounds. negative: Respiratory Distress Cardiovascular: positive: Regular Rhythm, Regular Rate, S1, S2. negative: Edema Gastrointestinal/Abdominal: positive: Soft. negative: Guarding, Rebound, Tenderness Musculoskeletal: positive: Normal Inspection Extremity: positive: Normal Inspection, Normal Range of Motion, Other (ambulatory with a steady gait). negative: Swelling, Calf Tenderness Integumentary: positive: Normal Color, Dry, Warm, Other (R breast with ttp the lower outer quadrant, b/l nipple piercings, no discharge expressed from the nipple b/l, no skin changes, no warmth, no redness, no erythema, no peau de orange) Neurologic: positive: Fully Oriented, Alert, Normal Mood/Affect Medical Decision Making - Medical Decision Making 12/05/19 13:41 a/p: 29yo female with R breast pain and green discharge from the nipple today -no f/c -feels a "heaviness to the R breast" -no hx of breast ca in the family -will send for ultrasound to eval for abscess 12/05/19 14:42 pt with an abscess along the duct and mammary glands, pending formal read -will send labs -cultures -will send covid -case discussed with Dr. Ware who requests pt be transferred to [facility] as no OR team at [facility] on the weekend -microblog sent to [employer] -pt updated and agrees with the plan -iv clinda ordered 12/05/19 14:[address] Honey Varela who accepts pt to service pt updated and agrees on transfer to [facility] for further eval and treatment Discharge - Discharge Information Problems reviewed: Yes Clinical Impression/Diagnosis: Abscess of right breast Condition: Fair - Admission Yes - Follow up/Referral Referrals: Rosa Sharma MD [Primary Care Provider] - - Patient Discharge Instructions - Post Discharge Activity
[2019-12-05] MEDS ORDERED: ACETAMINOPHEN 500 MG TABLET (FP) PO ONE (13:02)
[2019-12-05] MEDS ORDERED: ACETAMINOPHEN 500 MG TABLET (FP) ONE (13:23)
[2019-12-05] MEDS ORDERED: SODIUM CHLORIDE 0.9% 1000 ML INFUS.BAG IV ONE (14:17)
[2019-12-05] MEDS ORDERED: CLINDAMYCIN 600MG PREMIX IVPB 600 MG/50 ML BAG IVPB ONE (14:39)
[2019-12-05] MEDS ORDERED: CLINDAMYCIN PHOSPHATE 600 MG/4 ML VIAL ONE (14:48)
[2019-12-05 15:07] LABS: ACTIVATED PTT 26.3 SECONDS (25.2-36.5)
[2019-12-05 15:09] LABS: ALBUMIN 3.7 g/dl (3.4-5.0); BILIRUBIN,TOTAL 0.3 mg/dl (0.2-1); CALCIUM 8.6 mg/dl (8.5-10); CREATININE 0.8 mg/dl (0.55-1.3); POTASSIUM 4.1 mmol/L (3.5-5.1); TOT PROT 7.6 g/dl (6.4-8.2)
[2019-12-05 15:11] LABS: INR 1.16 (0.82-1.09)
[2019-12-05 15:13] LABS: BASO % 0.6 % (0-2.0); EOS % 0.7 % (0-4.5); HEMATOCRIT 38.4 % (32.4-45.2); HEMOGLOBIN 12.2 GM/dl (10.7-15.3); LYMPH % 20.3 % (8-40); MCH 22.2 pg (25.7-33.7); MCHC 31.9 g/dl (32.0-36.0); MEAN CELL VOLUME 69.6 fl (80-96); MEAN PLT VOLUME 9.6 fl (7.5-11.1); MONO % 6.2 % (3.8-10.2); NEUT % 72.2 % (42.8-82.8); PLATELET COUNT 294 K/MM3 (134-434); RBC 5.52 M/mm3 (3.60-5.2); RDW 14.2 % (11.6-15.6); WHITE BLOOD COUNT 12.6 K/mm3 (4.0-10.8)
[2019-12-05 15:15] LABS: ADD RBC MORPHOLOGY YES
[2019-12-05 15:29] LABS: HCG,QUALITATIVE URINE Negative
[2019-12-05 15:51] LABS: ANISOCYTOSIS 1+; PLATELET ESTIMATE ADEQUATE
--- NOTE | 2019-12-05 17:21 | HP ---
Admitting History and Physical - Primary Care Physician PCP: Rosa Sharma - Admission Chief Complaint: Right wrist pain and swelling History of Present Illness: 29-year-old female no significant past medical history except mild obesity, cosmetic nipple piercing 2 years ago, presented with right breast pain tenderness and swelling for past 3 t days patient denies any trauma or manipulation, as per patient 3 days ago she is noticed right breast pain heavin ess and tenderness with some inflammation, today morning noticed milky light discharge from right breast nipple came to ED for evaluation visited Dr. HOFF there work-up shows 5.5 cm x 1 cm x 0.2 cm linear abscess seen breast ultrasound, surgery was consulted recommended hospitalization for I&D, patient denies any fever chills nausea vomiting diarrhea denies any breast discharge. Unlimited exercise tolerance no history of PND orthopnea. History Source: Patient - Past Medical History ...LMP: 11/09/19 ...: No (UNKOWN) - Smoking History Smoking history: Never smoked Have you smoked in the past 12 months: No Aproximately how many cigarettes per day: 0 - Alcohol/Substance Use Hx Alcohol Use: Yes (OCCASIONAL) Home Medications - Allergies Allergies/Adverse Reactions: Allergies Allergy/AdvReac Type Severity Reaction Status Date / Time No Known Allergies Allergy Verified 12/05/19 12:43 - Home Medications Home Medications: Ambulatory Orders NK [No Known Home Medication] 12/05/19 Family Medical History Family History: Unremarkable (Father sister had CA breast) Family Hx Cardiac Disorders: Father (Hyper) Review of Systems - Review of Systems Constitutional: reports: Fever. denies: Chills, Diaphoresis Eyes: denies: Blind Spots, Blurred Vision, Double Vision, Eye Pain HENT: denies: Difficult Swallowing, Ear Discharge, Ear Pain, Epistaxis Neck: denies: Decreased ROM, Lumps, Pain on Movement Cardiovascular: denies: Chest Pain, Edema, Palpitations, Shortness of Breath Respiratory: denies: Cough, Exercise Intolerance, Hemoptysis, Orthopnea Gastrointestinal: denies: Abdominal Pain, Bloating, Constipation, Diarrhea Genitourinary: denies: Burning, Discharge, Dysuria, Flank Pain Breasts: reports: Pain (Right breast) Musculoskeletal: denies: Back Pain, Crepitus Integumentary: denies: Blister, Bruising, Change in Color, Eczema Pain Intensity: 3 Physical Examination Vital Signs: Vital Signs Temperature 98.6 F 12/05/19 15:22 Pulse Rate 68 12/05/19 16:19 Respiratory Rate 18 12/05/19 16:19 Blood Pressure 131/93 12/05/19 16:19 O2 Sat by Pulse Oximetry (%) 99 12/05/19 16:19 General: Young female, comfortable, not in distress HEENT mucous membranes moist, no anemia, no jaundice, PERRLA, no nystagmus Neck: No JVD, supple, no bruit, thyroid palpably normal, normal carotid pulsations. Chest: Bilateral nipple piercing, right breast swollen inflamed and tender , clear to auscultation bilaterally CVS: S1-S2 regular no murmur/gallop/rub Abdomen: Nondistended, soft, bowel sounds present. Extremities: No edema., No Calf tenderness, pulses present WAGON DRIVER: AO X3 , no gross motor sensory deficit Labs: CBC,CMP WBC 12.6 K/mm3 (4.0-10.8) H 12/05/19 14:25 RBC 5.52 M/mm3 (3.60-5.2) H 12/05/19 14:25 Hgb 12.2 GM/dl (10.7-15.3) 12/05/19 14:25 Hct 38.4 % (32.4-45.2) 12/05/19 14:25 MCV 69.6 fl (80-96) L 12/05/19 14:25 MCH 22.2 pg (25.7-33.7) L 12/05/19 14:25 MCHC 31.9 g/dl (32.0-36.0) L 12/05/19 14:25 RDW 14.2 % (11.6-15.6) 12/05/19 14:25 Plt Count 294 K/MM3 (134-434) 12/05/19 14:25 MPV 9.6 fl (7.5-11.1) 12/05/19 14:25 Absolute Neuts (auto) 9.1 K/mm3 12/05/19 14:25 Neutrophils % 72.2 % (42.8-82.8) 12/05/19 14:25 Lymphocytes % 20.3 % (8-40) 12/05/19 14:25 Monocytes % 6.2 % (3.8-10.2) 12/05/19 14:25 Eosinophils % 0.7 % (0-4.5) 12/05/19 14:25 Basophils % 0.6 % (0-2.0) 12/05/19 14:25 Hypochromia 1+ 12/05/19 14:25 Platelet Estimate Adequate 12/05/19 14:25 Anisocytosis 1+ 12/05/19 14:25 Microcytosis 1+ 12/05/19 14:25 Sodium 132 mmol/L (136-145) L 12/05/19 14:25 Potassium 4.1 mmol/L (3.5-5.1) 12/05/19 14:25 Chloride 106 mmol/L (98-107) 12/05/19 14:25 Carbon Dioxide 21 mmol/L (21-32) 12/05/19 14:25 Anion Gap 5 MMOL/L (8-16) L 12/05/19 14:25 BUN 14.0 mg/dl (7-18) 12/05/19 14:25 Creatinine 0.8 mg/dl (0.55-1.3) 12/05/19 14:25 Est GFR (CKD-EPI)AfAm 114.66 12/05/19 14:25 Est GFR (CKD-EPI)NonAf 98.93 12/05/19 14:25 Random Glucose 98 mg/dl (74-106) 12/05/19 14:25 Lactic Acid 1.0 mmol/L (0.4-2.0) 12/05/19 14:25 Calcium 8.6 mg/dl (8.5-10) 12/05/19 14:25 Total Bilirubin 0.3 mg/dl (0.2-1) 12/05/19 14:25 AST 15 U/L (15-37) 12/05/19 14:25 ALT 14 U/L (13-61) 12/05/19 14:25 Alkaline Phosphatase 84 U/L (45-117) 12/05/19 14:25 Total Protein 7.6 g/dl (6.4-8.2) 12/05/19 14:25 Albumin 3.7 g/dl (3.4-5.0) 12/05/19 14:25 Imaging - Results Ultrasound: Report Reviewed (Right breast ultrasound shows a 5.5 X.6X.2 centimeter linear abscess pointing to nipple with debris possibility) Problem List - Problems (1) Abscess of right breast Assessment/Plan: Right breast abscess, n.p.o. after midnight for possible I&D, Motrin for the pain, IV hydration, continue clindamycin, surgery is consulted will consider I&D tomorrow. Problems reviewed: Yes Code(s): N61.1 - ABSCESS OF THE BREAST AND NIPPLE (2) Obesity (BMI 30.0-34.9) Assessment/Plan: Nutrition consult is in order Problems reviewed: Yes Code(s): E66.9 - OBESITY, UNSPECIFIED
[2019-12-05] MEDS ORDERED: IBUPROFEN 600 MG TABLET (FP) PO PRN (17:25)
[2019-12-05 17:39] VITALS: BMI 35.4
[2019-12-05] MEDS: CLINDAMYCIN 900 MG PREMIX IVPB 900 MG/50 ML BAG IVPB SCH (18:06)
[2019-12-06] MEDS: CLINDAMYCIN 900 MG PREMIX IVPB 900 MG/50 ML BAG IVPB SCH ×3 (02:04→17:38)
[2019-12-06 08:21] LABS: BASO % 0.4 % (0-2.0); EOS % 0.9 % (0-4.5); HEMATOCRIT 34.9 % (32.4-45.2); LYMPH % 27.1 % (8-40); MCH 21.5 pg (25.7-33.7); MCHC 31.6 g/dl (32.0-36.0); MEAN PLT VOLUME 8.8 fl (7.5-11.1); NEUT % 64.6 % (42.8-82.8); PLATELET COUNT 257 K/MM3 (134-434); RBC 5.13 M/mm3 (3.60-5.2); RDW 15.6 % (11.6-15.6); WHITE BLOOD COUNT 10.3 K/mm3 (4.0-10.0)
--- NOTE | 2019-12-06 08:36 | CONSULT ---
- Consultation REQUESTING PROVIDER: Kaden SUH CONSULT REQUEST: We have been asked to surgically evaluate this patient for right breast pain. PCP:Honey Hilario MD HISTORY OF PRESENT ILLNESS:JETT who is a 29 y/o A/A female who presented with right breast pain and swelling of her right breast; there is no h/o breast trauma of human bite; she has b/l nipple piercing and has never had an issue w/them. PMHx: none PSHx: none Home Medications Medication Instructions Recorded NK [No Known Home Medication] 12/05/19 Allergies Allergy/AdvReac Type Severity Reaction Status Date / Time No Known Allergies Allergy Verified 12/05/19 12:43 REVIEW OF SYSTEMS: CONSTITUTIONAL: Absent: fever, chills, diaphoresis, generalized weakness, malaise, loss of appetite, weight change CARDIOVASCULAR: Absent: chest pain, syncope, palpitations, irregular heart rate, lightheadedness, peripheral edema RESPIRATORY: Absent: cough, shortness of breath, dyspnea with exertion, wheezing, stridor, hemoptysis GASTROINTESTINAL: Absent: abdominal pain, abdominal distension, nausea, vomiting, diarrhea, constipation, melena, hematochezia GENITOURINARY: Absent: dysuria, frequency, urgency, hesitancy, hematuria, flank pain, genital pain MUSCULOSKELETAL: Absent: myalgia, arthralgia, joint swelling, back pain, neck pain SKIN: Absent: rash, itching, pallor HEMATOLOGIC/IMMUNOLOGIC: Absent: easy bleeding, easy bruising, lymphadenopathy NEUROLOGIC: Absent: headache, focal weakness, paresthesias, dizziness, unsteady gait, seiz ure, mental status changes, bladder or bowel incontinence PSYCHIATRIC: Absent: anxiety, depression, suicidal or homicidal ideation, hallucinations. PHYSICAL EXAM: GENERAL: Awake, alert, and fully oriented, in no acute distress. HEAD: Normal with no signs of trauma. EYES: PERRL, sclera anicteric, conjunctiva clear. NECK: Normal ROM, supple without lymphadenopathy, JVD, or masses. ABDOMEN: Soft, nontender, not distended, normoactive bowel sounds, no guarding, no rebound, no masses. No organomegaly. MUSCULOSKELETAL: Normal ROM at all joints. No bony deformities or tenderness. No CVA tenderness. UPPER EXTREMITIES: 2+ pulses, warm, well-perfused. No cyanosis. Cap refill <2 seconds. No peripheral edema. LOWER EXTREMITIES: 2+ pulses, warm, well-perfused. No calf tenderness. No peripheral edema. NEUROLOGICAL: Normal speech, gait not observed. PSYCH: Cooperative. Good eye contact. Appropriate mood and affect. SKIN: Warm, dry, normal turgor, no rashes or lesions noted. BREASTS: b/l nipple piercing; tender mass 6-7N at 6-7 o'clock c/w an abscess; b/l breast exam o/w negative; there is purulent drainage from the nipple and areola. Vital Signs Temperature 98.6 F 12/06/19 04:00 Pulse Rate 76 12/06/19 04:00 Respiratory Rate 20 12/06/19 04:00 Blood Pressure 116/78 12/06/19 04:00 O2 Sat by Pulse Oximetry (%) 100 12/06/19 04:00 Lab Results WBC 12.6 K/mm3 (4.0-10.8) H 12/05/19 14:25 RBC 5.52 M/mm3 (3.60-5.2) H 12/05/19 14:25 Hgb 12.2 GM/dl (10.7-15.3) 12/05/19 14:25 Hct 38.4 % (32.4-45.2) 12/05/19 14:25 MCV 69.6 fl (80-96) L 12/05/19 14:25 MCHC 31.9 g/dl (32.0-36.0) L 12/05/19 14:25 RDW 14.2 % (11.6-15.6) 12/05/19 14:25 Plt Count 294 K/MM3 (134-434) 12/05/19 14:25 INR 1.16 (0.82-1.09) 12/05/19 14:25 Sodium 132 mmol/L (136-145) L 12/05/19 14:25 Potassium 4.1 mmol/L (3.5-5.1) 12/05/19 14:25 Chloride 106 mmol/L (98-107) 12/05/19 14:25 Carbon Dioxide 21 mmol/L (21-32) 12/05/19 14:25 Anion Gap 5 MMOL/L (8-16) L 12/05/19 14:25 BUN 14.0 mg/dl (7-18) 12/05/19 14:25 Creatinine 0.8 mg/dl (0.55-1.3) 12/05/19 14:25 Random Glucose 98 mg/dl (74-106) 12/05/19 14:25 Calcium 8.6 mg/dl (8.5-10) 12/05/19 14:25 Blood Type A POSITIVE 12/05/19 14:25 Antibody Screen Negative 12/05/19 14:25 breast US reviewed IMP: right breast abscess. PLAN: For I and D; patient understands that the wound will most likely be left open to heal by secondary intention; she understands this may affect cosmesis and she may have recurrent abscesses and/or a mammary duct fistula; I have strongly advised her that she remove both piercings and not replace them.. Vu Ware MD FACS
[2019-12-06 08:53] LABS: BLOOD UREA NITROGEN 10.3 mg/dL (7-18); CALCIUM 8.5 mg/dL (8.5-10.1); CREATININE 0.8 mg/dL (0.55-1.3); POTASSIUM 4.3 mmol/L (3.5-5.1)
[2019-12-06] MEDS ORDERED: PROPOFOL 20 ML ONE (09:27)
[2019-12-06] MEDS ORDERED: MIDAZOLAM HCL 2 MG/2 ML SINGLE DOSE VIAL ONE (09:27)
[2019-12-06] MEDS ORDERED: CLINDAMYCIN 900 MG PREMIX BAG IVPB ONE (09:35)
[2019-12-06] MEDS ORDERED: DEXAMETHASONE SOD PHOSPHATE 4 MG/1 ML VIAL ONE (10:06)
[2019-12-06] MEDS ORDERED: KETOROLAC TROMETHAMINE 30 MG/1 ML VIAL ONE (10:06)
--- NOTE | 2019-12-06 10:37 | OP ---
Operative Note - Note: Operative Date: 12/06/19 Pre-Operative Diagnosis: right breast abscess Operation: I and D right breast abscess Findings: deep right breast abscess and possible mammary duct fistula. Post-Operative Diagnosis: Same as Pre-op Surgeon: Vu Ware Anesthesiologist/GOLF BALL WINDER: Nai Bueno Anesthesia: General
[2019-12-06] MEDS ORDERED: ONDANSETRON 4 MG/2 ML VIAL IVPUSH PRN (10:39)
[2019-12-06] MEDS ORDERED: ONDANSETRON 4 MG/2 ML VIAL ONE (11:25)
[2019-12-06] MEDS: LACTATED RINGERS SOLUTION 1,000 ML IV SCH ×2 (11:30→11:57)
--- NOTE | 2019-12-06 11:45 | OP ---
DATE OF OPERATION: 12/06/2019 PREOPERATIVE DIAGNOSIS: Right breast abscess and possible mammary duct fistula. POSTOPERATIVE DIAGNOSIS: Right breast abscess and possible mammary duct fistula. PROCEDURE: Incision and drainage right breast abscess. SURGEON: Vu Ware MD ANESTHESIA: General. OPERATIVE FINDINGS: There was a deep breast abscess communicating with the nipple-areolar complex. The abscess was located at approximately 6 to 7 o'clock, 6 to 7 cm from the nipple-areolar complex. The rest of the findings were unremarkable except for previous evidence of current bilateral nipple piercing. PROCEDURE: Patient was placed on the operating table in the supine position. After the induction of general anesthesia, the patient's right breast was prepped with ChloraPrep and draped in a sterile fashion. A timeout was taken and a circumareolar skin incision was made from approximately 4 to 7 o'clock using a scalpel. This was taken down through skin and subcutaneous tissue and the breast parenchyma entered where purulent drainage was encountered in the previously mentioned area. Drainage was sent for culture and sensitivity to microbiology and then copious irrigation was carried out with sterile saline and peroxide. Hemostasis was secured with electrocautery. The wound further irrigated with plain saline and then packed with 1-inch Iodoform gauze followed by dry sterile dressings. The procedure was terminated at this point and the patient aroused from general anesthesia and transferred to the postanesthesia care unit in stable condition awake and alert. ESTIMATED BLOOD LOSS: Minimal. DRAINS: None. SPECIMEN: Purulent drainage to microbiology for culture and sensitivity. I, Vu Ware, was physically present in the operating room from the time the patient was placed on the operating room table until she was transferred to the postanesthesia care unit in my accompaniment. MD RIKI Dodd/[id number] MTDD
--- NOTE | 2019-12-06 13:32 | PN ---
Progress Note, Physician Chief Complaint: Status post I&D remained afebrile History of Present Illness: 29-year-old female no significant past medical history except mild obesity, cosmetic nipple piercing 2 years ago, presented with right breast pain tenderness and swelling for past 3 t days patient denies any trauma or manipulation, as per patient 3 days ago she is noticed right breast pain heaviness and tenderness with some inflammation, today morning noticed milky light discharge from right breast nipple came to ED for evaluation visited Dr. HOFF there work-up shows 5.5 cm x 1 cm x 0.2 cm linear abscess seen breast ultrasound, surgery was consulted recommended hospitalization for I&D, patient denies any fever chills nausea vomiting diarrhea denies any breast discharge. Unlimited exercise tolerance no history of PND orthopnea. - Current Medication List Current Medications: Active Medications Lactated Ringer's (Lactated Ringers Solution) 1,000 mls @ 75 mls/hr IV ASDIR NANCY Last Admin: 12/06/19 11:57 Dose: 75 mls/hr Documented by: Clindamycin Phosphate (Cleocin 900 Mg Premix Ivpb -) 900 mg in 50 mls @ 100 mls/hr IVPB Q8H-IV NANCY; Protocol Ibuprofen (Motrin -) 600 mg PO Q8H PRN PRN Reason: PAIN LEVEL 4 - 6 Ondansetron HCl (Zofran Injection) 4 mg IVPUSH Q6H PRN PRN Reason: NAUSEA AND/OR VOMITING Last Admin: 12/06/19 11:30 Dose: 4 mg Documented by: Oxycodone HCl (Roxicodone -) 5 mg PO Q6H PRN PRN Reason: PAIN LEVEL 7-10 - Objective Vital Signs: Vital Signs Temperature 98.0 F 12/06/19 12:30 Pulse Rate 60 12/06/19 12:30 Respiratory Rate 20 12/06/19 12:30 Blood Pressure 110/63 12/06/19 12:30 O2 Sat by Pulse Oximetry (%) 98 12/06/19 12:30 General: Young female, comfortable, not in distress HEENT mucous membranes moist, no anemia, no jaundice, PERRLA, no nystagmus Neck: No JVD, supple, no bruit, thyroid palpably normal, normal carotid pulsations. Chest: Right breast status post I&D, clear to auscultation bilaterally CVS: S1-S2 regular no murmur/gallop/rub Abdomen: Nondistended, soft, bowel sounds present. Extremities: No edema., No Calf tenderness, pulses present [employer]: AO X3 , no gross motor sensory deficit Labs: CBC, BMP 12/06/19 07:30 12/06/19 07:30 INR, PTT INR 1.16 (0.82-1.09) 12/05/19 14:25 Problem List - Problems (1) Abscess of right breast Assessment/Plan: Right breast abscess status post I&D, follow-up postop care instruction by surgery team, pain controlled, continue antibiotic, follow-up culture result., Code(s): N61.1 - ABSCESS OF THE BREAST AND NIPPLE (2) Obesity (BMI 30.0-34.9) Assessment/Plan: Nutrition consult is in order Code(s): E66.9 - OBESITY, UNSPECIFIED
[2019-12-06] MEDS: oxyCODONE HCL 5 MG TABLET PO PRN (17:40)
--- NOTE | 2019-12-06 18:54 | EKG ---
Test Reason : Blood Pressure : / mmHG Vent. Rate : 065 BPM Atrial Rate : 065 BPM P-R Int : 184 ms QRS Dur : 082 ms QT Int : 410 ms P-R-T Axes : 032 016 -02 degrees QTc Int : 426 ms NORMAL SINUS RHYTHM NONSPECIFIC T WAVE ABNORMALITY ABNORMAL ECG WHEN COMPARED WITH ECG OF 03-DEC-2016 23:23, NO SIGNIFICANT CHANGE WAS FOUND Confirmed by MD KAMALJIT, LENA ([id number]) on 12/06/2019 6:54:14 PM Referred By: ELOY CHANG Confirmed By:LENA MARI MD
[2019-12-07] MEDS: CLINDAMYCIN 900 MG PREMIX IVPB 900 MG/50 ML BAG IVPB SCH ×2 (02:00→10:07)
[2019-12-07] MEDS ORDERED: HYDROmorphone HCl 2 MG/ML VIAL IVPB ONE (07:44)
--- NOTE | 2019-12-07 07:48 | PN ---
Progress Note (short form) - Note Progress Note: GENERAL SURGERY POD #1 No acute events per RN notes. OOB and ambulating to bathroom. C/o incisional tenderness. Adequate pain control with meds ordered. Denies n/v/f/c Afebrile. AVSS Gen: nad Right breast: packing removed. no periwound erythema. no purulent drainage. not malodorous A/P: POD #1 s/p I&D riht breats abscess - STAT 1 time dose of Dilaudid 2mg IVPB prior too dressing change. - wound re-packed on rounds with 1/2" iodophorm packing; dressing changes to be continued daily by patient's RN as ordered - f/u wound culture - cont iv abx - patient instructed to f/u w/ Dr. Ware in 7-10 days after discharge (outlined in discharge plan) - no further planned surgical intervention On behalf of Dr. Ware, thank you for the opportunity to participate in your patient's care. Problem List - Problems (1) Abscess of right breast Code(s): N61.1 - ABSCESS OF THE BREAST AND NIPPLE (2) Obesity (BMI 30.0-34.9) Code(s): E66.9 - OBESITY, UNSPECIFIED
[2019-12-07 08:58] LABS: ALBUMIN 2.8 g/dl (3.4-5.0); BILIRUBIN,TOTAL 0.2 mg/dL (0.2-1); CALCIUM 8.5 mg/dL (8.5-10.1); CREATININE 0.8 mg/dL (0.55-1.3); POTASSIUM 4.2 mmol/L (3.5-5.1); TOT PROT 7.1 g/dl (6.4-8.2)
--- NOTE | 2019-12-07 11:52 | PN ---
Progress Note (short form) - Note Progress Note: Anesthesia Post op Pt seen and examined S:Alert and awake, c/o pain at the incision site S: Vital Signs Temperature 98.5 F 12/07/19 06:00 Pulse Rate 66 12/07/19 06:00 Respiratory Rate 20 12/07/19 06:00 Blood Pressure 108/58 L 12/07/19 06:00 O2 Sat by Pulse Oximetry (%) 99 12/07/19 06:00 CBC, BMP 12/06/19 07:30 12/07/19 07:32 A/P Current Active Problems Abscess of right breast (Acute) Obesity (BMI 30.0-34.9) (Acute) s/p I and D of breast Doing well post op. PO pain meds as needed Jerry Hatfield MD
--- NOTE | 2019-12-07 12:06 | CON.ID ---
Consult Consult Specialty:: infectious disease Referred by:: hospitalist Reason for Consultation:: breast abscess - History of Present Illness Chief Complaint: breast pain and drainage History of Present Illness: 29 yo female other [facility], history of bilateral nipple peircing 2 years ago, developed right breast pain on pain worsened, she had nipple discharge and breast swelling and heaviness no fevers or chills, no prior history of skin abscesses seen at [facility] and given Motrin symptoms persisted and she came on Saturday to [facility] started on clindamycin 12/04, no blood cultures sent sonogram with breast abscess seen by surgery and underwent drainage on Saturday wound culture growing coag positive staphylococci - History Source History Provided By: Patient Limitations to Obtaining History: No Limitations - Past Medical History ...LMP: 11/09/19 ...: No (UNKOWN) - Past Surgical History Past Surgical History: Yes: Additional Surgical History: remote history of - Alcohol/Substance Use Hx Alcohol Use: Yes (OCCASIONAL) - Smoking History Smoking history: Never smoked Have you smoked in the past 12 months: No Aproximately how many cigarettes per day: 0 - Social History Usual Living Arrangement: With Significant Other 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 denies: Chills, Fever Eyes: reports: No Symptoms Neck: reports: No Symptoms Respiratory: reports: No Symptoms Gastrointestinal: reports: No Symptoms Genitourinary: reports: No Symptoms Breasts: reports: See HPI Musculoskeletal: reports: No Symptoms Integumentary: reports: No Symptoms Neurological: reports: No Symptoms Endocrine: reports: No Symptoms Physical Exam Vital Signs: Vital Signs Temperature 98.5 F 12/07/19 06:00 Pulse Rate 66 12/07/19 06:00 Respiratory Rate 20 12/07/19 06:00 Blood Pressure 108/58 L 12/07/19 06:00 O2 Sat by Pulse Oximetry (%) 99 12/07/19 06:00 Constitutional: Yes: Well Nourished, No Distress Eyes: Yes: Conjunctiva Clear HENT: Yes: Atraumatic, Normocephalic Neck: Yes: Supple Cardiovascular: Yes: Regular Rate and Rhythm Respiratory: Yes: Regular Breast(s): Yes: Right (incision undeer nipple with packing +induration and discomfort to palpation) Musculoskeletal: Yes: WNL Extremities: Yes: WNL Edema: No Psychiatric: Yes: Alert, Oriented Labs: CBC, BMP 12/06/19 07:30 12/07/19 07:32 Microbiology 12/06/19 Unknown Abscess Gram Stain - Final 12/06/19 Unknown Abscess Wound Culture - Preliminary Staphylococcus Latex Coag Pos 12/06/19 Unknown Abscess Gram Stain - Final 12/06/19 Unknown Abscess Wound Culture - Preliminary Staphylococcus Latex Coag Pos Imaging - Results Ultrasound: Report Reviewed Problem List - Problems (1) Abscess of right breast Code(s): N61.1 - ABSCESS OF THE BREAST AND NIPPLE Assessment/Plan breast abscess s/p drainage Staph infection- still awaiting ID and sensitivity continue clindamycin, f/u cultures clinically improved no history of prior MRSA infection or recent antibiotics no history of excema or contact with anyone with MRSA or chronic skin infections
--- NOTE | 2019-12-07 15:21 | PN ---
Teaching Attending Note Name of Resident: Anamaria Karimi ATTENDING PHYSICIAN STATEMENT I saw and evaluated the patient. I reviewed the resident's note and discussed the case with the resident. I agree with the resident's findings and plan as documented. SUBJECTIVE: This patient is a 29yof with no significant PMHx , presented to having an abscess with nipple discharge with breast of her right breast 3 days ago. s/p I&D on 12/06/2019. No fever today or chills. OBJECTIVE: Vital Signs Temperature 98.9 F 12/07/19 14:17 Pulse Rate 68 12/07/19 14:17 Respiratory Rate 20 12/07/19 14:17 Blood Pressure 103/68 12/07/19 14:17 O2 Sat by Pulse Oximetry (%) 100 12/07/19 14:17 PE; per resident's note Right breast packing by the surgeon. s/p I&D CBCD WBC 10.3 K/mm3 (4.0-10.0) H 12/06/19 07:30 RBC 5.13 M/mm3 (3.60-5.2) 12/06/19 07:30 Hgb 11.0 GM/dL (10.7-15.3) 12/06/19 07:30 Hct 34.9 % (32.4-45.2) 12/06/19 07:30 MCV 68.0 fl (80-96) L 12/06/19 07:30 MCHC 31.6 g/dl (32.0-36.0) L 12/06/19 07:30 RDW 15.6 % (11.6-15.6) 12/06/19 07:30 Plt Count 257 K/MM3 (134-434) 12/06/19 07:30 MPV 8.8 fl (7.5-11.1) 12/06/19 07:30 CMP Sodium 138 mmol/L (136-145) 12/07/19 07:32 Potassium 4.2 mmol/L (3.5-5.1) 12/07/19 07:32 Chloride 107 mmol/L (98-107) 12/07/19 07:32 Carbon Dioxide 22 mmol/L (21-32) 12/07/19 07:32 Anion Gap 8 MMOL/L (8-16) 12/07/19 07:32 BUN 15.0 mg/dL (7-18) 12/07/19 07:32 Creatinine 0.8 mg/dL (0.55-1.3) 12/07/19 07:32 Random Glucose 98 mg/dL (74-106) 12/07/19 07:32 Calcium 8.5 mg/dL (8.5-10.1) 12/07/19 07:32 Total Bilirubin 0.2 mg/dL (0.2-1) 12/07/19 07:32 AST 12 U/L (15-37) L 12/07/19 07:32 ALT 14 U/L (13-61) 12/07/19 07:32 Alkaline Phosphatase 80 U/L (45-117) 12/07/19 07:32 Total Protein 7.1 g/dl (6.4-8.2) 12/07/19 07:32 Albumin 2.8 g/dl (3.4-5.0) L 12/07/19 07:32 Current Medications Generic Name Dose Route Start Last Admin Trade Name Freq PRN Reason Stop Dose Admin Lactated Ringer's 1,000 mls @ 75 mls/hr 12/06/19 10:45 12/06/19 11:57 Lactated Ringers Solution IV 75 mls/hr ASDIR NANCY Administration Clindamycin Phosphate 600 mg in 50 mls @ 100 mls/hr 12/07/19 18:00 Cleocin 600 Mg Premix Ivpb - IVPB Q8H-IV NANCY Protocol Ibuprofen 600 mg 12/06/19 10:44 Motrin - PO Q8H PRN PAIN LEVEL 4 - 6 Lactobacillus Acidophilus 1 tab 12/08/19 10:00 Bacid - PO DAILY [facility] Ondansetron HCl 4 mg 12/06/19 10:39 12/06/19 11:30 Zofran Injection IVPUSH 4 mg Q6H PRN Administration NAUSEA AND/OR VOMITING Oxycodone HCl 5 mg 12/06/19 10:38 12/06/19 17:40 Roxicodone - PO 5 mg Q6H PRN Administration PAIN LEVEL 7-10 Home Medications Medication Instructions Recorded oxyCODONE HCL [Roxicodone -] 5 mg PO Q6H PRN #20 tablet MDD 6 12/07/19 Microbiology 12/06/19 Unknown Abscess Gram Stain - Final 12/06/19 Unknown Abscess Wound Culture - Preliminary Staphylococcus Latex Coag Pos 12/06/19 Unknown Abscess Gram Stain - Final 12/06/19 Unknown Abscess Wound Culture - Preliminary Staphylococcus Latex Coag Pos ASSESSMENT AND PLAN: This patient is a 29yof with no significant PMHx , presented to having an abscess with nipple discharge with breast of her right breast 3 days ago. s/p I&D on 12/06/2019 #POD #1 s/p I&D of the right breast due to having an abscess on Clindamycin IV continue, waiting for the wound cx and sensitivity dc patient home once stable follow wound cx and sensitivity DVt Px: scds, early ambulation
[2019-12-07] MEDS: oxyCODONE HCL 5 MG TABLET PO PRN (16:31)
--- NOTE | 2019-12-07 16:31 | PN ---
Physical Exam: SUBJECTIVE: Patient seen and examined, was sleeping in bed and needed multiple attempts to arouse. Saw her after receiving 2mg hydromorphone for dressing change. Said that she has a severe headache with photophobia, located to the R forehead and ocular region, and that she has had the headache for 7 days. She normally does not have these types of headaches. She denied neck stiffness or occipital headache. Denied VD but endorse mild nausea. OBJECTIVE: Vital Signs Period Temp Pulse Resp BP Sys/Loera Pulse Ox Last 24 Hr 98.2 F-98.9 F 50-72 20-20 100-120/58-77 98-100 GENERAL: AAF, appears stated age, overweight, AAOx3, sleeping but arousable upon several attempts, no signs of acute distress but appears uncomfortable HEAD: Normal with no signs of trauma LUNGS: CTAB, no wheezing appreciated HEART: RRR, clear S1 and S2 appreciated without murmurs ABDOMEN: Soft, nontender, obese, normoactive bowel sounds EXTREMITIES: radial and dorsalis pedis pulses easily palpable, no peripheral edema noted NEUROLOGICAL: Cranial nerves II through XII grossly intact. mildly slurry but otherwise normal speech PSYCH: mildly depressed mood, mildly restricted affect, patient is whispering (due to headache) SKIN: Warm, multiple tatoos on arms, shoulders, chest. No other rashes or lesions noted Laboratory Results - last 24 hr 12/07/19 07:32 Sodium 138 Potassium 4.2 Chloride 107 Carbon Dioxide 22 Anion Gap 8 BUN 15.0 Creatinine 0.8 Est GFR (CKD-EPI)AfAm 114.66 Est GFR (CKD-EPI)NonAf 98.93 Random Glucose 98 Calcium 8.5 Total Bilirubin 0.2 AST 12 L ALT 14 Alkaline Phosphatase 80 Total Protein 7.1 Albumin 2.8 L Active Medications Generic Name Dose Route Start Last Admin Trade Name Freq PRN Reason Stop Dose Admin Lactated Ringer's 1,000 mls @ 75 mls/hr 12/06/19 10:45 12/06/19 11:57 Lactated Ringers Solution IV 75 mls/hr ASDIR NANCY Administration Clindamycin Phosphate 600 mg in 50 mls @ 100 mls/hr 12/07/19 18:00 Cleocin 600 Mg Premix Ivpb - IVPB Q8H-IV NANCY Protocol Ibuprofen 600 mg 12/06/19 10:44 Motrin - PO Q8H PRN PAIN LEVEL 4 - 6 Lactobacillus Acidophilus 1 tab 12/08/19 10:00 Bacid - PO DAILY NANCY Ondansetron HCl 4 mg 12/06/19 10:39 12/06/19 11:30 Zofran Injection IVPUSH 4 mg Q6H PRN Administration NAUSEA AND/OR VOMITING Oxycodone HCl 5 mg 12/06/19 10:38 12/06/19 17:40 Roxicodone - PO 5 mg Q6H PRN Administration PAIN LEVEL 7-10 ASSESSMENT/PLAN: 29yo F with no significant PMHx presented on 12/05/19 with 3 days of R breast pain. She had her breasts pierces bilaterally about 2 years ago and has had metal piercings since then with no complications. Labs were remarkable for leukocytosis 12.6, and R breast US showed elongated fluid collection and dilated ducts in retroaleolar regions and lower outer quadrant which was indicative of an abscess (or in rare cases carcinoma). Patient was admitted for further treatment of her R breast abscess. Underwent I&D on 12/06/19. COVID negative. #R breast abscess s/p I&D on 12/06/19 POD1 - dressing changed this morning by surgical PA - received 2g hydromorphone prior to dressing change - f/u with Dr. Ware in 7-10 days after d/c - no further planned surgical intervention - for pain continue oxycodone - wound cultures growing staphylococcus latex coag positive - ID consulted - appreciate recs: *awaiting sensitivity - f/u cultures *continue clindamycin #Headache with photophobia - likely due to current medical condition - ordered head CT without contrast #FEN - LR 75cc/h - replete lytes PRN - regular diet #PPX - SCDs and early ambulation #Dispo Visit type - Emergency Visit Emergency Visit: Yes ED Registration Date: 12/05/19 Care time: The patient presented to the Emergency Department on the above date and was hospitalized for further evaluation of their emergent condition. - New Patient This patient is new to me today: Yes Date on this admission: 12/07/19 - Critical Care Critical Care patient: No ATTENDING PHYSICIAN STATEMENT I saw and evaluated the patient. I reviewed the resident's note and discussed the case with the resident. I agree with the resident's findings and plan as documented. SUBJECTIVE: OBJECTIVE: ASSESSMENT AND PLAN:
[2019-12-07] MEDS: CLINDAMYCIN 600MG PREMIX IVPB 600 MG/50 ML BAG IVPB SCH (17:12)
[2019-12-07] MEDS: LACTATED RINGERS SOLUTION 1,000 ML IV SCH (20:15)
[2019-12-07] MEDS: IBUPROFEN 600 MG TABLET (FP) PO PRN (21:03)
[2019-12-08] MEDS: CLINDAMYCIN 600MG PREMIX IVPB 600 MG/50 ML BAG IVPB SCH ×3 (01:20→17:37)
[2019-12-08 07:51] LABS: BASO % 0.6 % (0-2.0); EOS % 2.5 % (0-4.5); HEMATOCRIT 31.9 % (32.4-45.2); LYMPH % 49.3 % (8-40); MCH 21.3 pg (25.7-33.7); MCHC 31.5 g/dl (32.0-36.0); MEAN CELL VOLUME 67.5 fl (80-96); MONO % 4.1 % (3.8-10.2); NEUT % 43.5 % (42.8-82.8); PLATELET COUNT 273 K/MM3 (134-434); RBC 4.72 M/mm3 (3.60-5.2); WHITE BLOOD COUNT 9.7 K/mm3 (4.0-10.0)
[2019-12-08 08:19] LABS: ALBUMIN 2.7 g/dl (3.4-5.0); BILIRUBIN,TOTAL 0.6 mg/dL (0.2-1); BLOOD UREA NITROGEN 14.7 mg/dL (7-18); CALCIUM 8.4 mg/dL (8.5-10.1); CREATININE 0.8 mg/dL (0.55-1.3); MAGNESIUM 1.8 mg/dL (1.8-2.4); PHOSPHOROUS 4.5 mg/dL (2.5-4.9); POTASSIUM 4.4 mmol/L (3.5-5.1); TOT PROT 6.4 g/dl (6.4-8.2)
[2019-12-08] MEDS: LACTOBACILLUS ACIDOPHILUS 1 TABLET PO SCH (09:52)
--- NOTE | 2019-12-08 13:55 | PN ---
Progress Note (short form) - Note Progress Note: still some headache- head ct negative-reports retroorbital behind left eye queries whether this could be due to her iv antibiotic (clindamycin) no fevers looks well Vital Signs Period Temp Pulse Resp BP Sys/Loera Pulse Ox Last 24 Hr 98.1 F-98.9 F 50-76 18-20 100-112/62-69 98-100 cor-rrr lungs clear abd soft,nt right breast- no drainage, char conveyor tender from lateral aspect to touch, no erythema ext no edema CBC, BMP 12/08/19 07:01 12/08/19 07:01 Microbiology 12/06/19 Unknown Abscess Gram Stain - Final 12/06/19 Unknown Abscess Wound Culture - Final Staphylococcus Aureus 12/06/19 Unknown Abscess Gram Stain - Final 12/06/19 Unknown Abscess Wound Culture - Final Staphylococcus Latex Coag Pos a/p MSSA breast abscess s/p drainage- can switch to po augmentin for one week 875 mg po bid for 7 days f/u with surgery management of headaches- ?migraines- per hospitalist service Problem List - Problems (1) Abscess of right breast Code(s): N61.1 - ABSCESS OF THE BREAST AND NIPPLE
[2019-12-08] MEDS: IBUPROFEN 600 MG TABLET (FP) PO PRN (13:57)
--- NOTE | 2019-12-08 16:18 | PN ---
Teaching Attending Note Name of Resident: Hugh Garrido ATTENDING PHYSICIAN STATEMENT I saw and evaluated the patient. I reviewed the resident's note and discussed the case with the resident. I agree with the resident's findings and plan as documented. SUBJECTIVE: pain in R breast is better . no N.V . No fever . wants to go home OBJECTIVE: NAD Awake, alert , walking in room CV: RRr Lungs: CTAB ext : No edema or erythema on legs or arms breast : R breast with a surgical wound at lower hallo , with packing that was removed. small amount of thin purulent drainage was found. no surrounding erythema. mild tenderness of area. ASSESSMENT AND PLAN: 29 y/o lady who is being treated for R breast cellulitis /abscess - s/o surgical I&D - MSSA with sensitivity reviewed. - augmenitn x 7 more days d/w surgical team . change packing daily and follow with Dr. Ware in 1 week team d/w SW to arrange for VNS also, RN to teach patient how to change packing [facility]
[2019-12-08] MEDS: LACTATED RINGERS SOLUTION 1,000 ML IV SCH (17:49)
--- NOTE | 2019-12-08 18:04 | PN ---
Physical Exam: SUBJECTIVE: Patient seen and examined, was lying in bed resting comfortably early in the morning and when seen later during rounds patient was standing up and eating her lunch. She is feeling better than yesterday and is no longer complaining of a headache. OBJECTIVE: Vital Signs Period Temp Pulse Resp BP Sys/Loera Pulse Ox Last 24 Hr 98.1 F-98.5 F 55-76 18-20 104-112/62-85 98-100 GENERAL: AAF, appears stated age, overweight, AAOx3, awake and comfortable, no signs of acute distress HEAD: Normal with no signs of trauma LUNGS: CTAB, no wheezing appreciated HEART: RRR, clear S1 and S2 appreciated without murmurs ABDOMEN: Soft, nontender, obese, normoactive bowel sounds EXTREMITIES: radial and dorsalis pedis pulses easily palpable, no peripheral edema noted NEUROLOGICAL: Cranial nerves II through XII grossly intact. mildly slurry but otherwise normal speech PSYCH: mood congruent with context, normal range affect, patient is softspoken but no longer whispering SKIN: Warm, multiple tatoos on arms, shoulders, chest. No other rashes or lesions noted Laboratory Results - last 24 hr 12/08/19 12/08/19 07:01 07:01 WBC 9.7 RBC 4.72 Hgb 10.0 L Hct 31.9 L MCV 67.5 L MCH 21.3 L MCHC 31.5 L RDW 15.0 Plt Count 273 MPV 9.0 Absolute Neuts (auto) 4.2 Neutrophils % 43.5 D Lymphocytes % 49.3 H D Monocytes % 4.1 Eosinophils % 2.5 D Basophils % 0.6 Nucleated RBC % 0 Sodium 140 Potassium 4.4 Chloride 108 H Carbon Dioxide 23 Anion Gap 9 BUN 14.7 Creatinine 0.8 Est GFR (CKD-EPI)AfAm 114.66 Est GFR (CKD-EPI)NonAf 98.93 Random Glucose 86 Calcium 8.4 L Phosphorus 4.5 Magnesium 1.8 Total Bilirubin 0.6 AST 8 L ALT 14 Alkaline Phosphatase 67 Total Protein 6.4 Albumin 2.7 L Active Medications Generic Name Dose Route Start Last Admin Trade Name Freq PRN Reason Stop Dose Admin Lactated Ringer's 1,000 mls @ 75 mls/hr 12/06/19 10:45 12/08/19 17:49 Lactated Ringers Solution IV 75 mls/hr ASDIR NANCY Administration Clindamycin Phosphate 600 mg in 50 mls @ 100 mls/hr 12/07/19 18:00 12/08/19 17:37 Cleocin 600 Mg Premix Ivpb - IVPB 100 mls/hr Q8H-IV NANCY Administration Protocol Ibuprofen 600 mg 12/06/19 10:44 12/08/19 13:57 Motrin - PO 600 mg Q8H PRN Administration PAIN LEVEL 4 - 6 Lactobacillus Acidophilus 1 tab 12/08/19 10:00 12/08/19 09:52 Bacid - PO 1 tab DAILY NANCY Administration Ondansetron HCl 4 mg 12/06/19 10:39 12/06/19 11:30 Zofran Injection IVPUSH 4 mg Q6H PRN Administration NAUSEA AND/OR VOMITING Oxycodone HCl 5 mg 12/06/19 10:38 12/07/19 16:31 Roxicodone - PO 5 mg Q6H PRN Administration PAIN LEVEL 7-10 ASSESSMENT/PLAN: 29yo F with no significant PMHx presented on 12/05/19 with 3 days of R breast pain. She had her breasts pierces bilaterally about 2 years ago and has had metal piercings since then with no complications. Labs were remarkable for leukocytosis 12.6, and R breast US showed elongated fluid collection and dilated ducts in retroaleolar regions and lower outer quadrant which was indicative of an abscess (or in rare cases carcinoma). Patient was admitted for further treatment of her R breast abscess. Underwent I&D on 12/06/19. COVID negative. #R breast abscess s/p I&D on 12/06/19 POD2 - dressing changed this morning - did not receive pain medication prior to dressing change - f/u with Dr. Ware in 7-10 days after d/c - no further planned surgical intervention - wound cultures growing staphylococcus latex coag positive - ID consulted - appreciate recs: *augmentin 875mg PO BID for 7 days - patient has been optimized for d/c #Headache with photophobia - resolved - head CT without contrast was unremarkable #FEN - LR 75cc/h - replete lytes PRN - regular diet #PPX - SCDs and early ambulation #Dispo: patient can go home tomorrow once home nursing visits have been conf irmed. Visit type - Emergency Visit Emergency Visit: Yes ED Registration Date: 12/05/19 Care time: The patient presented to the Emergency Department on the above date and was hospitalized for further evaluation of their emergent condition. - New Patient This patient is new to me today: No - Critical Care Critical Care patient: No ATTENDING PHYSICIAN STATEMENT I saw and evaluated the patient. I reviewed the resident's note and discussed the case with the resident. I agree with the resident's findings and plan as documented. SUBJECTIVE: OBJECTIVE: ASSESSMENT AND PLAN:
[2019-12-09 06:15] VITALS: BP 104/63; PULSE 59; TEMP 98.5
[2019-12-09] MEDS ORDERED: AMOX TR/POT CLAV 875MG/125MG TABLETS (FP) PO SCH (08:00)
[2019-12-09] MEDS: LACTOBACILLUS ACIDOPHILUS 1 TABLET PO SCH (09:07)
[2019-12-09] MEDS: oxyCODONE HCL 5 MG TABLET PO PRN (09:10)
--- NOTE | 2019-12-09 15:18 | PN ---
Teaching Attending Note Name of Resident: Hugh Garrido ATTENDING PHYSICIAN STATEMENT I saw and evaluated the patient. I reviewed the resident's note and discussed the case with the resident. I agree with the resident's findings and plan as documented. SUBJECTIVE: less pain in breast today. did nto leave last night as VNS was not arranged OBJECTIVE: R breast wound has less discharge today . no erythema , mild tenderness ASSESSMENT AND PLAN: cont as planned. packing daily. RN was instructed to teach patient and her friend how to pack wound and to care for it . cont Abx after dc x 1 week VNS
--- NOTE | 2019-12-09 15:26 | DS ---
Physical Exam: SUBJECTIVE: Patient seen and examined, is feeling well and feels ready to go home. Was seen by nurse for wound care instructions prior to d/c. OBJECTIVE: Vital Signs Period Temp Pulse Resp BP Sys/Loera Pulse Ox Last 24 Hr 98.5 F-98.6 F 59-62 18-20 98-109/55-66 99-100 PHYSICAL EXAM GENERAL: AAF, appears stated age, overweight, AAOx3, awake and comfortable, no signs of acute distress HEAD: Normal with no signs of trauma LUNGS: CTAB, no wheezing appreciated HEART: RRR, clear S1 and S2 appreciated without murmurs ABDOMEN: Soft, nontender, obese, normoactive bowel sounds EXTREMITIES: radial and dorsalis pedis pulses easily palpable, no peripheral edema noted NEUROLOGICAL: Cranial nerves II through XII grossly intact. mildly slurry but otherwise normal speech PSYCH: mood congruent with context, normal range affect, patient is softspoken but no longer whispering SKIN: Warm, multiple tatoos on arms, shoulders, chest. No other rashes or lesions noted Home Medications Medication Instructions Recorded Acetaminophen [Tylenol] 325 mg PO PRN PRN 4 Days #16 tablet 12/08/19 Amoxicillin/Potassium Clav 1 each PO BID 7 Days #14 tablet 12/08/19 [Augmentin 875-125 Tablet] Ibuprofen [Motrin -] 600 mg PO Q8H PRN 3 Days #8 tablet 12/08/19 HOSPITAL COURSE: 29yo F with no significant PMHx presented on 12/05/19 with 3 days of R breast pain. She had her breasts pierces bilaterally about 2 years ago and has had metal piercings since then with no complications. Labs were remarkable for leukocytosis 12.6, and R breast US showed elongated fluid collection and dilated ducts in retroaleolar regions and lower outer quadrant which was indicative of an abscess (or in rare cases carcinoma). Patient was admitted for further treatment of her R breast abscess. Underwent I&D on 12/06/19. COVID negative. Patient recovered well and was shown how to take care of her wound at home. Home nurse visits for additional wound care assistance have been arranged. Abx were changed to PO and patient has been optimized for discharge. Date of Admission:12/05/19 Date of Discharge: 12/09/19 Minutes to complete discharge: 37 Discharge Summary Problems reviewed: Yes Reason For Visit: ABSCESS OF RIGHT BREAST Condition: Improved - Instructions Diet, Activity, Other Instructions: Hospital Course: You came to the hospital due to pain on your left breast and were found to have an abscess. You underwent Incision and Drainage on 12/06/2019 and you now have a wound that will take some time to heal. You have been feeling better and you are ready to go home. Please follow the below instructions closely to assure adequate wound healing. Medications: - Please take Augmentin 875mg by mouth, 1 tablet twice a day (1 in the morning and 1 in the evening) for the next 6 days - For pain, please take Motrin 600mg by mouth, not more than once in an 8 hour period. - For pain, you may also take Tylenol 325mg by mouth, not more than 6 times per day. Follow up: - Your primary care physician Dr. Rosa Sharma - please see her within a week of going home - Your surgeon Dr. Vu Ware - please see him within 7-10 days of going home - If your headaches recur, please see a Neurologist and also let your primary care doctor know Dr. Ware Discharge Instructions Dear JOVANNA THOMASON, Post Operative Instructions Physical activity Resume your normal everyday activity as tolerated no heavy lifting or exercise until seen by your surgeon. You may walk unlimited amounts of and climb stairs. You may resume driving the car when you feel safe and comfortable behind the wheel. Wound care pack wound with iodophrom dressing daily, and cover with clean gauze . visiting nurse will help you and assess Diet There are no dietary restrictions. Eat healthy, high-fiber foods. Drink 6 to 8 glasses of liquid each day. This will assist in keeping your bowels are regular. Call Dr. Ware for any of the following: Severe pain not relieved by medication Fever of 101 or higher Excessive bleeding or drainage on dressing Inability to urinate Call the office at [phone] for a post operative appointment in 7 - 10 days. Referrals: Vu Ware MD [Staff Physician] - 1 Week Rosa Sharma MD [Primary Care Provider] - 1 Week Disposition: [facility]NS/HOME HEALTH CARE - Home Medications Comprehensive Discharge Medication List: Ambulatory Orders Acetaminophen [Tylenol] 325 mg PO PRN PRN 4 Days #16 tablet 12/08/19 Amoxicillin/Potassium Clav [Augmentin 875-125 Tablet] 1 each PO BID 7 Days #14 tablet 12/08/19 Ibuprofen [Motrin -] 600 mg PO Q8H PRN 3 Days #8 tablet 12/08/19 This patient is new to me today: No Emergency Visit: Yes ED Registration Date: 12/05/19 Care time: The patient presented to the Emergency Department on the above date and was hospitalized for further evaluation of their emergent condition. Critical Care patient: No - Discharge Referral Referred to [facility] No ATTENDING PHYSICIAN STATEMENT I saw and evaluated the patient. I reviewed the resident's note and discussed the case with the resident. I agree with the resident's findings and plan as documented. SUBJECTIVE: OBJECTIVE: ASSESSMENT AND PLAN:
== END 2019-12-09 14:01 | disposition home health service (06) | DRG 363 ==
LOC: FER 12:42 → J8W 16:40
PROVIDERS: ADMIT Internal Medicine; ATTEND Internal Medicine
PROC: 0H9T0ZX Drainage of Right Breast, Open Approach, Diagnostic (ICD-10-PCS; principal; 2019-12-06 09:00)
DX: N61.1 Abscess of the breast and nipple (principal); D72.829 Elevated white blood cell count, unspecified; H53.149 Visual discomfort, unspecified; G44.40 Drug-induced headache, not elsewhere classified, not intractable; Z68.35 Body mass index [BMI] 35.0-35.9, adult; N64.0 Fissure and fistula of nipple; E66.9 Obesity, unspecified
CPT/HCPCS: 36415; 70450-TC; 76642-TC-RT; 80048; 80053; 81003; 83605; 83735; 84100; 84703; 85025; 85610; 85730; 86850; 86900; 86901; 87070; 87186; 87205; 93005; 94760; 99285-25; U0003

== ENCOUNTER 2020-03-08 12:11 | Emergency (ER) | payer OTHER ==
[2020-03-08 12:14] VITALS: BP 111/75; PULSE 73; TEMP 99.1; BMI 34.7
[2020-03-08] MEDS ORDERED: LIDOCAINE 5% TOPICAL PATCH TP ONE (12:46)
[2020-03-08] MEDS ORDERED: ACETAMINOPHEN 325 MG TABLET (FP) PO ONE (12:46)
[2020-03-08 13:01] LABS: HCG,QUALITATIVE URINE Negative
[2020-03-08] MEDS ORDERED: LIDOCAINE 5% TOPICAL PATCH ONE (13:16)
[2020-03-08] MEDS ORDERED: ACETAMINOPHEN 325 MG TABLET (FP) ONE (13:16)
[2020-03-08 13:36] LABS: EPITHELIAL CELLS FEW /hpf
[2020-03-08] MEDS ORDERED: LIDOCAINE PATCH REMOVAL MC SCH (22:00)
== END 2020-03-08 13:53 | disposition home or self-care (01) ==
LOC: FER 12:11
DX: M25.562 Pain in left knee (principal); S86.912A Strain of unspecified muscle(s) and tendon(s) at lower leg level, left leg, initial encounter
CPT/HCPCS: 81003; 81015; 84703; 87086; 99283-25

== ENCOUNTER 2020-04-20 10:11 | Emergency (ER) | payer OTHER ==
[2020-04-20 10:33] VITALS: BP 116/74; PULSE 76; TEMP 98.9; BMI 34.0
== END 2020-04-20 10:37 | disposition left against medical advice (07) ==
LOC: FER 10:11
DX: R05 Cough (principal); Z03.818 Encounter for observation for suspected exposure to other biological agents ruled out
CPT/HCPCS: 81025; 99283-25

== ENCOUNTER 2020-04-24 10:05 | Emergency (ER) | payer OTHER | END 2020-04-24 12:09 | disposition home or self-care (01) | LOC: JVIRT 10:05 | DX: U07.1 COVID-19 (principal) | CPT/HCPCS: C9803; G2251-GT; Q3014-GT; U0003 ==